=== PATIENT | male | born 1945 | race Caucasian/White ===

== ENCOUNTER 2020-04-04 13:35 | Emergency (ER) | payer MEDICARE, MEDICAID ==
[~2020-04-04] VITALS: Ht 177.8 cm; Wt 95.0 kg
[~2020-04-04 13:35] MED LIST: AMLO5TAB PO; ASPI-41 PO; CLOP75TA15 PO; GABA-532 PO; HYDR-4353 PO; LISI-600 PO; TRAM50TA2 PO
[2020-04-04] MEDS ORDERED: tranexamic acid 100mg/ml inj. TP ONE (15:35)
[2020-04-04] MEDS ORDERED: AMOX-419 PO (16:27)
[2020-04-04 16:51] VITALS: BP 154/73
== END 2020-04-04 16:52 | disposition home or self-care (01) ==
LOC: ER 13:35
DX: R04.0 Epistaxis (principal); H92.01 Otalgia, right ear; I25.10 Atherosclerotic heart disease of native coronary artery without angina pectoris; I10 Essential (primary) hypertension; I25.2 Old myocardial infarction; M19.90 Unspecified osteoarthritis, unspecified site; G89.29 Other chronic pain; Z87.01 Personal history of pneumonia (recurrent); Z98.890 Other specified postprocedural states; Z91.018 Allergy to other foods; Z91.010 Allergy to peanuts; Z91.09 Other allergy status, other than to drugs and biological substances; Z79.01 Long term (current) use of anticoagulants; Z79.82 Long term (current) use of aspirin; Z79.2 Long term (current) use of antibiotics; Z79.899 Other long term (current) drug therapy
CPT/HCPCS: 99284

== ENCOUNTER 2020-04-06 01:11 | Emergency (ER) | payer MEDICARE, MEDICAID ==
[~2020-04-06] VITALS: Ht 177.8 cm; Wt 95.5 kg
[~2020-04-06 01:11] MED LIST changes: +AMOX-419 PO
[2020-04-06 01:21] VITALS: BP 173/85
[2020-04-06] MEDS ORDERED: cocaine 4% topical solution 4ml bottle MM ONE ×2 (01:25→01:30)
[2020-04-06] MEDS ORDERED: amox tr/potassium clavulanate 875/125mg TAB PO ONE (03:05)
== END 2020-04-06 04:00 | disposition home or self-care (01) ==
LOC: ER 01:11
DX: S01.21XA Laceration without foreign body of nose, initial encounter (principal); I25.10 Atherosclerotic heart disease of native coronary artery without angina pectoris; I10 Essential (primary) hypertension; I25.2 Old myocardial infarction; M19.90 Unspecified osteoarthritis, unspecified site; G89.29 Other chronic pain; Z98.61 Coronary angioplasty status; Z98.890 Other specified postprocedural states; Z88.8 Allergy status to other drugs, medicaments and biological substances; Z91.018 Allergy to other foods; Z79.2 Long term (current) use of antibiotics; Z79.899 Other long term (current) drug therapy; X58.XXXA Exposure to other specified factors, initial encounter; Y93.89 Activity, other specified; Y92.89 Other specified places as the place of occurrence of the external cause; Y99.8 Other external cause status
CPT/HCPCS: 30901; 99284

== ENCOUNTER 2021-01-09 07:16 | Emergency (ER) | payer MEDICARE, MEDICAID ==
[~2021-01-09] VITALS: Ht 180.3 cm; Wt 100.0 kg
[~2021-01-09 07:16] MED LIST changes: -AMOX-419 PO; -LISI-600 PO; +LISI20TA28 PO
[2021-01-09 07:23] VITALS: BP 182/88
[2021-01-09 07:53] LABS: BASOPHILS % (AUTO) 0.4 % (0-1); EOSINOPHILS # (AUTO) 0.3 X10'3 (0-0.9); EOSINOPHILS % (AUTO) 3.3 % (0-6); HEMATOCRIT 36.3 % (42.0-52.0); HEMOGLOBIN 11.8 g/dl (14.0-17.9); LYMPHOCYTES # (AUTO) 2.5 X10'3 (1.1-4.8); LYMPHOCYTES % (AUTO) 31.8 % (21-51); MEAN CORPUSCULAR HGB CONC 32.4 g/dL (33.0-36.5); MEAN CORPUSCULAR VOLUME 83.4 FL (78-98); MEAN PLATELET VOLUME 9.6 FL (7.4-10.4); MONOCYTES # (AUTO) 1.1 X10'3 (0-0.9); MONOCYTES % (AUTO) 14.2 % (2-12); NEUTROPHILS % (AUTO) 50.3 % (42-75); PLATELET COUNT 177 X10'3 (140-440); RED BLOOD COUNT 4.36 X10'6 (4.70-6.10); RED CELL DISTRIBUTION WIDTH 15.3 % (11.5-14.5)
[2021-01-09 08:08] LABS: ALANINE AMINOTRANSFERASE 20 U/L (12-78); ALBUMIN 3.2 G/DL (3.4-5.0); ALBUMIN/GLOBULIN RATIO 0.8 (1.1-1.5); ALKALINE PHOSPHATASE 68 IU/L (46-116); ANION GAP 7 (8-16); ASPARTATE AMINO TRANSFERASE 12 U/L (10-37); BILIRUBIN,TOTAL 0.4 MG/DL (0.1-1.0); BLOOD UREA NITROGEN 32 MG/DL (7-18); BUN/CREATININE RATIO 27.6 (5.4-32.0); CALCIUM 9.1 MG/DL (8.5-10.1); CHLORIDE 102 MMOL/L (99-107); CREATININE 1.16 MG/DL (0.60-1.10); GLUCOSE 122 MG/DL (70-104); MAGNESIUM 1.9 MG/DL (1.5-2.4); POTASSIUM 4.1 MMOL/L (3.5-5.1); SODIUM 137 MMOL/L (135-145); TOTAL CARBON DIOXIDE 28.2 MMOL/L (24-32); eGFR 62 ML/MIN
== END 2021-01-09 09:15 | disposition home or self-care (01) ==
LOC: ER 07:16
DX: R00.2 Palpitations (principal); I25.10 Atherosclerotic heart disease of native coronary artery without angina pectoris; I10 Essential (primary) hypertension; I25.2 Old myocardial infarction; M19.90 Unspecified osteoarthritis, unspecified site; G89.29 Other chronic pain; Z87.01 Personal history of pneumonia (recurrent); Z98.890 Other specified postprocedural states; Z91.018 Allergy to other foods; Z91.010 Allergy to peanuts; Z79.82 Long term (current) use of aspirin; Z88.8 Allergy status to other drugs, medicaments and biological substances; Z79.899 Other long term (current) drug therapy
CPT/HCPCS: 36415; 71045; 80053; 83735; 84484; 85025; 93005; 99285

== ENCOUNTER 2021-02-06 03:52 | Emergency (ER) | payer MEDICARE, MEDICAID ==
[~2021-02-06] VITALS: Ht 177.8 cm; Wt 88.6 kg
[2021-02-06 03:54] VITALS: BP 203/99
[2021-02-06] MEDS ORDERED: HYDROcodone/acetaminophen 10/325mg tab PO ONE (04:10)
[2021-02-06] MEDS ORDERED: ondansetron/PF 4mg/2ml inj IV ONE ×2 (04:10→04:45)
[2021-02-06] MEDS ORDERED: gabapentin 300mg capsule PO SCH (04:10)
[2021-02-06] MEDS ORDERED: iohexol 300mg/ml 100ml inj. ONE (04:31)
[2021-02-06 04:34] LABS: BASOPHILS % (AUTO) 0.5 % (0-1); EOSINOPHILS % (AUTO) 0.2 % (0-6); HEMATOCRIT 42.7 % (42.0-52.0); LYMPHOCYTES # (AUTO) 1.8 X10'3 (1.1-4.8); LYMPHOCYTES % (AUTO) 18.9 % (21-51); MEAN CORPUSCULAR HEMOGLOBIN 26.9 PG (27.0-31.0); MEAN CORPUSCULAR HGB CONC 32.7 g/dL (33.0-36.5); MEAN CORPUSCULAR VOLUME 82.2 FL (78-98); MONOCYTES # (AUTO) 0.6 X10'3 (0-0.9); MONOCYTES % (AUTO) 6.9 % (2-12); NEUTROPHILS # (AUTO) 6.9 X10'3 (1.8-7.7); NEUTROPHILS % (AUTO) 73.5 % (42-75); PLATELET COUNT 172 X10'3 (140-440); RED BLOOD COUNT 5.19 X10'6 (4.70-6.10); RED CELL DISTRIBUTION WIDTH 15.8 % (11.5-14.5); WHITE BLOOD COUNT 9.3 X10'3 (4.5-11.0)
[2021-02-06 04:43] LABS: ALANINE AMINOTRANSFERASE 22 U/L (12-78); ALBUMIN 3.6 G/DL (3.4-5.0); ALBUMIN/GLOBULIN RATIO 0.9 (1.1-1.5); ALKALINE PHOSPHATASE 80 IU/L (46-116); ANION GAP 9 (8-16); ASPARTATE AMINO TRANSFERASE 14 U/L (10-37); BILIRUBIN,TOTAL 0.6 MG/DL (0.1-1.0); BLOOD UREA NITROGEN 21 MG/DL (7-18); BUN/CREATININE RATIO 18.4 (5.4-32.0); CALCIUM 9.5 MG/DL (8.5-10.1); CHLORIDE 103 MMOL/L (99-107); CREATININE 1.14 MG/DL (0.60-1.10); GLUCOSE 131 MG/DL (70-104); LIPASE 81 U/L (73-393); POTASSIUM 3.5 MMOL/L (3.5-5.1); SODIUM 141 MMOL/L (135-145); TOTAL CARBON DIOXIDE 29.5 MMOL/L (24-32); TOTAL PROTEIN 7.6 G/DL (6.4-8.2); eGFR 63 ML/MIN
[2021-02-06] MEDS ORDERED: fentaNYL/PF 50MCG/1 ML 2ML syringe IV ONE (04:45)
[2021-02-06] MEDS ORDERED: ONDA4TAB12 PO (06:11)
== END 2021-02-06 06:36 | disposition home or self-care (01) ==
LOC: ER 03:53
DX: R11.2 Nausea with vomiting, unspecified (principal); R10.84 Generalized abdominal pain; M79.669 Pain in unspecified lower leg; M19.90 Unspecified osteoarthritis, unspecified site; G89.29 Other chronic pain; I25.10 Atherosclerotic heart disease of native coronary artery without angina pectoris; I10 Essential (primary) hypertension; I25.2 Old myocardial infarction; Z87.01 Personal history of pneumonia (recurrent); Z98.61 Coronary angioplasty status
CPT/HCPCS: 36415; 74177; 80053; 83690; 85025; 93005; 96374; 96375; 99285; J2405; J3010; Q9967

== ENCOUNTER 2022-04-23 13:49 | Emergency (ER) | payer MEDICARE, MEDICAID ==
[~2022-04-23] VITALS: Ht 177.8 cm; Wt 87.4 kg
[~2022-04-23 13:49] MED LIST changes: +ONDA4TAB12 PO
[2022-04-23 14:13] VITALS: BP 158/71
[2022-04-23 16:38] LABS: D-DIMER 0.61 MG/L FEU (0-0.50)
[2022-04-23 17:00] LABS: EOSINOPHILS # (AUTO) 0.3 X10'3 (0-0.9); EOSINOPHILS % (AUTO) 4.9 % (0-6); LYMPHOCYTES % (AUTO) 29.9 % (21-51); MEAN CORPUSCULAR HEMOGLOBIN 28.1 PG (27.0-31.0); NEUTROPHILS # (AUTO) 3.8 X10'3 (1.8-7.7)
[2022-04-23 17:03] LABS: BASOPHILS % (AUTO) 0.3 % (0-1); HEMATOCRIT 42.8 % (42.0-52.0); MEAN CORPUSCULAR HGB CONC 32.7 g/dL (33.0-36.5); MEAN CORPUSCULAR VOLUME 85.9 FL (78-98); MEAN PLATELET VOLUME 9.3 FL (7.4-10.4); MONOCYTES # (AUTO) 0.6 X10'3 (0-0.9); MONOCYTES % (AUTO) 9.1 % (2-12); NEUTROPHILS % (AUTO) 55.8 % (42-75); PLATELET COUNT 176 X10'3 (140-440); RED BLOOD COUNT 4.99 X10'6 (4.70-6.10); RED CELL DISTRIBUTION WIDTH 14.6 % (11.5-14.5); WHITE BLOOD COUNT 6.8 X10'3 (4.5-11.0)
[2022-04-23 17:08] LABS: ALANINE AMINOTRANSFERASE 16 U/L (12-78); ALBUMIN 3.8 G/DL (3.4-5.0); ALKALINE PHOSPHATASE 92 IU/L (46-116); ANION GAP 5 (8-16); ASPARTATE AMINO TRANSFERASE 15 U/L (10-37); BILIRUBIN,TOTAL 0.6 MG/DL (0.1-1.0); BLOOD UREA NITROGEN 20 MG/DL (7-18); BUN/CREATININE RATIO 18.3 (5.4-32.0); CALCIUM 9.1 MG/DL (8.5-10.1); CHLORIDE 102 MMOL/L (99-107); CREATININE 1.09 MG/DL (0.60-1.10); GLUCOSE 89 MG/DL (70-104); POTASSIUM 4.6 MMOL/L (3.5-5.1); SODIUM 136 MMOL/L (135-145); TOTAL CARBON DIOXIDE 28.7 MMOL/L (24-32); TOTAL PROTEIN 7.5 G/DL (6.4-8.2); eGFR 66 ML/MIN
[2022-04-23] MEDS ORDERED: ALBU18HF2 INH (17:16)
[2022-04-23] MEDS ORDERED: DOXY-11 PO (17:16)
== END 2022-04-23 17:35 | disposition home or self-care (01) ==
LOC: ER 13:50
DX: U07.1 COVID-19 (principal); J40 Bronchitis, not specified as acute or chronic; I11.9 Hypertensive heart disease without heart failure; G89.29 Other chronic pain; Z91.018 Allergy to other foods; Z88.8 Allergy status to other drugs, medicaments and biological substances; Z91.010 Allergy to peanuts
CPT/HCPCS: 36415; 71045; 80053; 85025; 85379; 99284

== ENCOUNTER 2022-04-26 06:12 | Emergency (ER) | payer MEDICARE, MEDICAID ==
[~2022-04-26] VITALS: Ht 177.8 cm; Wt 87.4 kg
[~2022-04-26 06:12] MED LIST changes: +ALBU18HF2 INH; +DOXY-11 PO
[2022-04-26 06:22] VITALS: BP 162/75
[2022-04-26] MEDS ORDERED: ONDA8TAB13 PO (06:49)
== END 2022-04-26 07:22 | disposition home or self-care (01) ==
LOC: ER 06:13
DX: R11.2 Nausea with vomiting, unspecified (principal); R53.83 Other fatigue; R05.9 Cough, unspecified; Z86.16 Personal history of COVID-19; I25.10 Atherosclerotic heart disease of native coronary artery without angina pectoris; I10 Essential (primary) hypertension; I25.2 Old myocardial infarction; M19.90 Unspecified osteoarthritis, unspecified site; G89.29 Other chronic pain; Z95.5 Presence of coronary angioplasty implant and graft; Z87.01 Personal history of pneumonia (recurrent); Z88.8 Allergy status to other drugs, medicaments and biological substances; Z91.010 Allergy to peanuts; Z91.018 Allergy to other foods; Z79.2 Long term (current) use of antibiotics; Z79.899 Other long term (current) drug therapy
CPT/HCPCS: 99283

== ENCOUNTER 2022-07-10 09:17 | Emergency (ER) | payer MEDICARE, MEDICAID ==
[~2022-07-10] VITALS: Ht 172.7 cm; Wt 90.9 kg
[~2022-07-10 09:17] MED LIST changes: -DOXY-11 PO; +ONDA8TAB13 PO
--- NOTE | 2022-07-10 13:00 | NUR ---
Post void residual =15ml.
--- NOTE | 2022-07-10 13:28 | NUR ---
Difficult to placed condom cath on pt due to his smaller size. is aware.
--- NOTE | 2022-07-10 14:35 | NUR ---
Pt given and understands d/c instructions. Escorted to the lobby via wheelchair.
[2022-07-10 14:36] VITALS: BP 155/79
== END 2022-07-10 14:38 | disposition home or self-care (01) ==
LOC: ER 09:17
DX: T83.018A Breakdown (mechanical) of other urinary catheter, initial encounter (principal); R21 Rash and other nonspecific skin eruption; I11.9 Hypertensive heart disease without heart failure; G89.29 Other chronic pain; Z91.018 Allergy to other foods; Z91.010 Allergy to peanuts; Z79.899 Other long term (current) drug therapy; Z79.82 Long term (current) use of aspirin
CPT/HCPCS: 51702; 99284; C1758; A4349; A4358

== ENCOUNTER 2022-08-14 05:02 | Emergency (ER) | payer MEDICARE, MEDICAID ==
[~2022-08-14] VITALS: Ht 177.8 cm; Wt 86.4 kg
[2022-08-14] MEDS ORDERED: ondansetron/PF 4mg/2ml inj IV ONE (05:45)
[2022-08-14] MEDS ORDERED: normal saline 1000ml 1,000 ML IV ONE (05:45)
[2022-08-14] MEDS ORDERED: normal saline 1000ML IV soln IVB ONE (06:25)
[2022-08-14] MEDS ORDERED: morphine 4 MG/ML inj SYRINge IV PRN (06:25)
[2022-08-14] MEDS ORDERED: morphine 4 MG/ML inj SYRINge IV ONE (06:32)
[2022-08-14 06:44] LABS: BASOPHILS % (AUTO) 0.3 % (0-1); EOSINOPHILS % (AUTO) 0.4 % (0-6); HEMATOCRIT 41.2 % (42.0-52.0); HEMOGLOBIN 13.7 g/dl (14.0-17.9); LYMPHOCYTES # (AUTO) 1.8 X10'3 (1.1-4.8); LYMPHOCYTES % (AUTO) 20.7 % (21-51); MEAN CORPUSCULAR HEMOGLOBIN 28.8 PG (27.0-31.0); MEAN CORPUSCULAR HGB CONC 33.3 g/dL (33.0-36.5); MEAN CORPUSCULAR VOLUME 86.4 FL (78-98); MEAN PLATELET VOLUME 9.8 FL (7.4-10.4); MONOCYTES # (AUTO) 0.5 X10'3 (0-0.9); MONOCYTES % (AUTO) 6.1 % (2-12); NEUTROPHILS # (AUTO) 6.2 X10'3 (1.8-7.7); NEUTROPHILS % (AUTO) 72.5 % (42-75); PLATELET COUNT 152 X10'3 (140-440); RED BLOOD COUNT 4.77 X10'6 (4.70-6.10); RED CELL DISTRIBUTION WIDTH 14.9 % (11.5-14.5); WHITE BLOOD COUNT 8.5 X10'3 (4.5-11.0)
[2022-08-14 06:53] LABS: ALANINE AMINOTRANSFERASE 14 U/L (12-78); ALBUMIN 3.8 G/DL (3.4-5.0); ALKALINE PHOSPHATASE 78 IU/L (46-116); ANION GAP 9 (8-16); ASPARTATE AMINO TRANSFERASE 12 U/L (10-37); BILIRUBIN,TOTAL 0.7 MG/DL (0.1-1.0); BLOOD UREA NITROGEN 26 MG/DL (7-18); CALCIUM 9.8 MG/DL (8.5-10.1); CHLORIDE 104 MMOL/L (99-107); GLUCOSE 120 MG/DL (70-104); POTASSIUM 3.4 MMOL/L (3.5-5.1); SODIUM 143 MMOL/L (135-145); TOTAL CARBON DIOXIDE 30.2 MMOL/L (24-32); TOTAL PROTEIN 7.5 G/DL (6.4-8.2); eGFR 73 ML/MIN
[2022-08-14 07:00] LABS: MAGNESIUM 1.9 MG/DL (1.5-2.4)
[2022-08-14 07:44] LABS: LIPASE 89 U/L (73-393)
[2022-08-14 08:37] VITALS: BP 133/61
[2022-08-14] MEDS ORDERED: proCHLORperazine 10 MG/2 ml inj IV ONE (09:10)
[2022-08-14] MEDS ORDERED: ONDA8TAB13 PO (09:23)
== END 2022-08-14 09:45 | disposition home or self-care (01) ==
LOC: ER 05:03
DX: R11.2 Nausea with vomiting, unspecified (principal); G89.29 Other chronic pain; M54.89 Other dorsalgia; E86.0 Dehydration; I25.10 Atherosclerotic heart disease of native coronary artery without angina pectoris; I10 Essential (primary) hypertension; I25.2 Old myocardial infarction; M19.90 Unspecified osteoarthritis, unspecified site; Z87.01 Personal history of pneumonia (recurrent); Z98.890 Other specified postprocedural states; Z88.8 Allergy status to other drugs, medicaments and biological substances; Z91.030 Bee allergy status; Z91.010 Allergy to peanuts; Z79.82 Long term (current) use of aspirin; Z79.899 Other long term (current) drug therapy
CPT/HCPCS: 36415; 71045; 80053; 83690; 83735; 83880; 84484; 85025; 93005; 96361; 96374; 96375; 96376; 99285; C1758; J0780; J2270; J2405; J7030; A6258; A6449

== ENCOUNTER 2023-07-14 09:41 | Emergency (ER) | payer MEDICARE, MEDICAID ==
[~2023-07-14] VITALS: Ht 177.8 cm; Wt 83.6 kg
[2023-07-14 09:43] VITALS: BP 184/77; PULSE 70; RESP 16; TEMP 98; O2SAT 98
[2023-07-14] MEDS ORDERED: ACET-2 PO ×3 (11:53→12:42)
== END 2023-07-14 12:14 | disposition home or self-care (01) ==
LOC: ER 09:42
DX: G89.29 Other chronic pain (principal); M54.59 Other low back pain; I11.9 Hypertensive heart disease without heart failure; Z88.8 Allergy status to other drugs, medicaments and biological substances; Z79.899 Other long term (current) drug therapy
CPT/HCPCS: 99281; 99283

== ENCOUNTER 2024-02-09 12:41 | Emergency (ER) | payer MEDICARE, MEDICAID ==
[~2024-02-09] VITALS: Ht 195.6 cm; Wt 96.0 kg
[~2024-02-09 12:41] MED LIST changes: +ACET-2 PO
[2024-02-09 12:49] VITALS: TEMP 98.4
[2024-02-09 14:05] LABS: BASOPHILS % (AUTO) 0.3 % (0-1); EOSINOPHILS % (AUTO) 0.2 % (0-6); HEMATOCRIT 45.4 % (42.0-52.0); HEMOGLOBIN 15.2 g/dl (14.0-17.9); LYMPHOCYTES # (AUTO) 2.1 X10'3 (1.1-4.8); MEAN CORPUSCULAR HEMOGLOBIN 28.9 PG (27.0-31.0); MEAN CORPUSCULAR HGB CONC 33.5 g/dL (33.0-36.5); MEAN CORPUSCULAR VOLUME 86.3 FL (78-98); MEAN PLATELET VOLUME 9.8 FL (7.4-10.4); MONOCYTES # (AUTO) 0.6 X10'3 (0-0.9); MONOCYTES % (AUTO) 6.6 % (2-12); NEUTROPHILS # (AUTO) 6.3 X10'3 (1.8-7.7); NEUTROPHILS % (AUTO) 69.9 % (42-75); PLATELET COUNT 194 X10'3 (140-440); RED BLOOD COUNT 5.26 X10'6 (4.70-6.10); RED CELL DISTRIBUTION WIDTH 14.2 % (11.5-14.5); WHITE BLOOD COUNT 9.1 X10'3 (4.5-11.0)
[2024-02-09] MEDS: ondansetron/PF 4mg/2ml inj IV ONE (14:17)
[2024-02-09] MEDS: morphine 4 MG/ML inj SYRINge IV ONE (14:17)
[2024-02-09 14:21] LABS: ALANINE AMINOTRANSFERASE 13 U/L (12-78); ALBUMIN 3.7 G/DL (3.4-5.0); ALBUMIN/GLOBULIN RATIO 0.8 (1.1-1.5); ALKALINE PHOSPHATASE 81 IU/L (46-116); ANION GAP 13 (8-16); ASPARTATE AMINO TRANSFERASE 15 U/L (10-37); BILIRUBIN,TOTAL 0.9 MG/DL (0.1-1.0); BLOOD UREA NITROGEN 27 MG/DL (7-18); BUN/CREATININE RATIO 22.5 (10.0-20.0); CALCIUM 9.4 MG/DL (8.5-10.1); CHLORIDE 103 MMOL/L (99-107); GLUCOSE 112 MG/DL (70-104); LIPASE 24 U/L (16-77); POTASSIUM 3.9 MMOL/L (3.5-5.1); SODIUM 143 MMOL/L (135-145); TOTAL CARBON DIOXIDE 27.5 MMOL/L (24-32); TOTAL PROTEIN 8.1 G/DL (6.4-8.2); eCRCL 65 ML/MIN; eGFR 59 ML/MIN
[2024-02-09] MEDS: HYDROcodone/acetaminophen 10/325mg tab PO ONE (17:16)
[2024-02-09 17:26] VITALS: BP 174/78; PULSE 63; RESP 16; O2SAT 96
== END 2024-02-09 17:30 | disposition home or self-care (01) ==
LOC: ER 12:42
DX: R11.10 Vomiting, unspecified (principal); G89.29 Other chronic pain; M54.9 Dorsalgia, unspecified; F11.93 Opioid use, unspecified with withdrawal; I10 Essential (primary) hypertension; M19.90 Unspecified osteoarthritis, unspecified site; Z88.8 Allergy status to other drugs, medicaments and biological substances; Z88.2 Allergy status to sulfonamides; Z79.899 Other long term (current) drug therapy; Z79.82 Long term (current) use of aspirin
CPT/HCPCS: 36415; 80053; 83690; 84484; 85025; 93005; 96374; 96375; 99285; J2270; J2405

== ENCOUNTER 2024-06-12 09:16 | Emergency (ER) | payer MEDICARE, MEDICAID ==
[~2024-06-12] VITALS: Ht 175.3 cm; Wt 71.5 kg
[~2024-06-12 09:16] MED LIST changes: +ONDA-243 PO; +ONDA-245 PO; -ONDA4TAB12 PO; -ONDA8TAB13 PO
[2024-06-12 09:18] VITALS: BP 168/65; PULSE 70; TEMP 97.6; O2SAT 95
[2024-06-12 09:27] VITALS: RESP 16
[2024-06-12] MEDS: azithromycin 250mg tablet PO ONE (10:10)
[2024-06-12] MEDS ORDERED: AZIT-164 PO (10:20)
== END 2024-06-12 10:37 | disposition home or self-care (01) ==
LOC: ER 09:16
DX: J32.8 Other chronic sinusitis (principal); I10 Essential (primary) hypertension; I25.10 Atherosclerotic heart disease of native coronary artery without angina pectoris; I25.2 Old myocardial infarction; M19.90 Unspecified osteoarthritis, unspecified site; G89.29 Other chronic pain; Z98.890 Other specified postprocedural states; Z98.61 Coronary angioplasty status; Z88.2 Allergy status to sulfonamides; Z91.018 Allergy to other foods; Z79.899 Other long term (current) drug therapy; Z79.82 Long term (current) use of aspirin
CPT/HCPCS: 87070; 99284

== ENCOUNTER 2024-12-17 06:58 | Emergency (ER) | payer MEDICARE, MEDICAID ==
[~2024-12-17] VITALS: Ht 177.8 cm; Wt 98.3 kg
[~2024-12-17 06:58] MED LIST changes: -ACET-2 PO; -ALBU18HF2 INH; +AMLO10TA5 PO; -AMLO5TAB PO; +APIX5TAB3 PO; -ASPI-41 PO; -CLOP75TA15 PO; +EMPA10TA PO; +FURO-150 PO; +GABA-530 PO; -GABA-532 PO; +GABA100C PO; +LACT1CAP26 PO; +OMEP20CA16 PO; -ONDA-243 PO; -ONDA-245 PO; +SPIR25TA5 PO
[2024-12-17 07:02] VITALS: BP 180/75; PULSE 70; RESP 18; TEMP 98.3; O2SAT 96
[2024-12-17 08:44] LABS: ALBUMIN 3.2 G/DL (3.4-5.0); ANION GAP 11 (8-16); BLOOD UREA NITROGEN 23 MG/DL (7-18); BUN/CREATININE RATIO 13.8 (10.0-20.0); CALCIUM 9.3 MG/DL (8.5-10.1); CHLORIDE 102 MMOL/L (99-107); CREATININE 1.67 MG/DL (0.60-1.10); GLUCOSE 117 MG/DL (70-104); POTASSIUM 4.7 MMOL/L (3.5-5.1); SODIUM 135 MMOL/L (135-145); eCRCL 38 ML/MIN; eGFR 40 ML/MIN
[2024-12-17 08:53] LABS: BASOPHILS % (AUTO) 0.3 % (0-1); EOSINOPHILS % (AUTO) 0.1 % (0-6); HEMATOCRIT 37.6 % (42.0-52.0); HEMOGLOBIN 12.6 g/dl (14.0-17.9); LYMPHOCYTES # (AUTO) 1.6 X10'3 (1.1-4.8); LYMPHOCYTES % (AUTO) 15.4 % (21-51); MEAN CORPUSCULAR HEMOGLOBIN 29.3 PG (27.0-31.0); MEAN CORPUSCULAR HGB CONC 33.5 g/dL (33.0-36.5); MEAN CORPUSCULAR VOLUME 87.5 FL (78-98); MEAN PLATELET VOLUME 9.6 FL (7.4-10.4); MONOCYTES # (AUTO) 1.1 X10'3 (0-0.9); MONOCYTES % (AUTO) 10.5 % (2-12); NEUTROPHILS # (AUTO) 7.6 X10'3 (1.8-7.7); NEUTROPHILS % (AUTO) 73.7 % (42-75); PLATELET COUNT 161 X10'3 (140-440); RED CELL DISTRIBUTION WIDTH 15.1 % (11.5-14.5); WHITE BLOOD COUNT 10.4 X10'3 (4.5-11.0)
[2024-12-17] MEDS ORDERED: ACET15SO14 RIGHT EAR (09:59)
== END 2024-12-17 10:03 | disposition home or self-care (01) ==
LOC: ER 06:59
DX: H92.01 Otalgia, right ear (principal); R50.9 Fever, unspecified; I21.9 Acute myocardial infarction, unspecified; I10 Essential (primary) hypertension; I25.10 Atherosclerotic heart disease of native coronary artery without angina pectoris; I25.2 Old myocardial infarction; G89.29 Other chronic pain; M19.90 Unspecified osteoarthritis, unspecified site; Z88.2 Allergy status to sulfonamides; Z91.010 Allergy to peanuts; Z88.8 Allergy status to other drugs, medicaments and biological substances; Z91.018 Allergy to other foods; Z79.899 Other long term (current) drug therapy; Z98.890 Other specified postprocedural states; Z20.822 Contact with and (suspected) exposure to COVID-19
CPT/HCPCS: 36415; 71046; 80048; 83605; 84145; 85025; 87040; 87811; 99284

== ENCOUNTER 2024-12-22 14:12 | Inpatient (IN) | payer MEDICARE, MEDICAID ==
[~2024-12-22] VITALS: Ht 177.8 cm; Wt 84.0 kg
[~2024-12-22 14:12] MED LIST changes: +ACET15SO14 RIGHT EAR
[2024-12-22 16:56] LABS: ABG BASE EXCESS -5.6 mmol/L (-2.0-3.0); ABG HCO3 20.2 mmol/L (21.0-28.0); ABG OXYGEN SATURATION 90.4 % (94.0-98.0); ABG PCO2 (T) 40.2 mmHg (35.0-48.0); ABG PH (T) 7.318 (7.350-7.450); ABG PO2 (T) 62.8 mmHg (83.0-108.0); ALLEN'S TEST POSITIVE; FCOHb 0.4 % (0.5-1.5); FHHb 9.5 % (0.0-5.0); FLOW 0 L/min; FMetHb 0.3 % (0.0-1.5); FO2Hb 89.8 % (94.0-98.0); MODE ROOM AIR; TOTAL HEMOGLOBIN 12.1 G/dl (13.5-17.5)
[2024-12-22 17:24] LABS: BASOPHILS % (AUTO) 0.2 % (0-1); EOSINOPHILS % (AUTO) 0.2 % (0-6); HEMATOCRIT 35.2 % (42.0-52.0); HEMOGLOBIN 11.5 g/dl (14.0-17.9); LYMPHOCYTES # (AUTO) 1.2 X10'3 (1.1-4.8); LYMPHOCYTES % (AUTO) 6.9 % (21-51); MEAN CORPUSCULAR HEMOGLOBIN 28.9 PG (27.0-31.0); MEAN CORPUSCULAR HGB CONC 32.6 g/dL (33.0-36.5); MEAN CORPUSCULAR VOLUME 88.7 FL (78-98); MONOCYTES # (AUTO) 2.3 X10'3 (0-0.9); MONOCYTES % (AUTO) 13.3 % (2-12); NEUTROPHILS # (AUTO) 13.6 X10'3 (1.8-7.7); NEUTROPHILS % (AUTO) 79.4 % (42-75); PLATELET COUNT 250 X10'3 (140-440); RED BLOOD COUNT 3.97 X10'6 (4.70-6.10); RED CELL DISTRIBUTION WIDTH 15.2 % (11.5-14.5); WHITE BLOOD COUNT 17.2 X10'3 (4.5-11.0)
[2024-12-22 17:50] LABS: ALANINE AMINOTRANSFERASE 14 U/L (12-78); ALBUMIN 2.3 G/DL (3.4-5.0); ALBUMIN/GLOBULIN RATIO 0.5 (1.1-1.5); ALKALINE PHOSPHATASE 82 IU/L (46-116); ANION GAP 9 (8-16); ASPARTATE AMINO TRANSFERASE 10 U/L (10-37); BILIRUBIN,TOTAL 0.6 MG/DL (0.1-1.0); BLOOD UREA NITROGEN 54 MG/DL (7-18); BUN/CREATININE RATIO 17.6 (10.0-20.0); CALCIUM 9.2 MG/DL (8.5-10.1); CHLORIDE 104 MMOL/L (99-107); CREATININE 3.06 MG/DL (0.60-1.10); GLUCOSE 88 MG/DL (70-104); POTASSIUM 5.4 MMOL/L (3.5-5.1); SODIUM 139 MMOL/L (135-145); TOTAL CARBON DIOXIDE 26.2 MMOL/L (24-32); TOTAL PROTEIN 7.2 G/DL (6.4-8.2); eCRCL 21 ML/MIN; eGFR 20 ML/MIN
[2024-12-22 17:55] LABS: BILIRUBIN,URINE NEGATIVE (Neg); CLARITY,URINE CLEAR (Clear); COLOR,URINE YELLOW (Yellow); GLUCOSE, URINE NEGATIVE (Neg); KETONES,URINE NEGATIVE (Neg); LEUKOCYTE ESTERASE ,URINE MODERATE (Neg); NITRITES, URINE POSITIVE (Neg); OCCULT BLOOD,URINE MODERATE (Neg); PROTEIN,URINE 30 mg/dl (Neg); UROBILINOGEN,URINE 0.2 E.U/dL (0.2-1.0)
[2024-12-22 17:59] LABS: PRO BRAIN NATRIURETIC PEPTIDE 22869 PG/ML (0-450)
[2024-12-22 18:02] LABS: UA COLLECTION TYPE NON-SPECIFIED
[2024-12-22 18:04] LABS: BACTERIA,URINE 4+ /HPF (Neg); SQUAMOUS EPITHELIAL CELL,UR FEW /LPF (FEW); WBC,URINE TNTC /HPF (0-4)
[2024-12-22] MEDS: CefTRIAXone 2gm/D5W 50ml BAG 50 ML IV ONE (18:40)
[2024-12-22] MEDS: ringers solution, lacted 1,000 ML IV ONE ×2 (18:45→20:58)
[2024-12-22] MEDS: acetaminophen 1,000mg/100ml IV 100 ML IV ONE (19:39)
[2024-12-22] MEDS: normal saline 500ml IV soln 500 ML IV ONE (19:40)
[2024-12-22] MEDS ORDERED: mag hydrox/Alum hydrox/simeth 30ml oral suspension PO PRN (21:10)
[2024-12-22] MEDS ORDERED: acetaminophen 325mg tablet PO PRN (21:10)
[2024-12-22] MEDS ORDERED: potassium Cl 40MEQ/1/2NS 520ml 520 ML IV PRN (21:10)
[2024-12-22] MEDS ORDERED: potassium Cl 20 mEq SR tablet PO PRN ×2 (21:10)
[2024-12-22] MEDS ORDERED: magnesium hydroxide 30ml (MOM) UD suspension PO PRN (21:10)
[2024-12-22] MEDS ORDERED: magnesium sulf-water 4G/100mL 100 ML IV PRN (21:10)
[2024-12-22] MEDS ORDERED: ondansetron/PF 4mg/2ml inj IV PRN (21:10)
[2024-12-22] MEDS ORDERED: magnesium sulf-water 2g/50mL 50 ML IV PRN (21:10)
[2024-12-22] MEDS ORDERED: magnesium Cl slow-release 64mg tablet PO PRN (21:10)
[2024-12-22 21:37] LABS: ALANINE AMINOTRANSFERASE 9 U/L (12-78); ALBUMIN 1.9 G/DL (3.4-5.0); ALBUMIN/GLOBULIN RATIO 0.4 (1.1-1.5); ALKALINE PHOSPHATASE 73 IU/L (46-116); ANION GAP 12 (8-16); ASPARTATE AMINO TRANSFERASE 13 U/L (10-37); BILIRUBIN,TOTAL 0.4 MG/DL (0.1-1.0); BLOOD UREA NITROGEN 50 MG/DL (7-18); BUN/CREATININE RATIO 17.6 (10.0-20.0); CALCIUM 8.7 MG/DL (8.5-10.1); CHLORIDE 103 MMOL/L (99-107); CREATININE 2.84 MG/DL (0.60-1.10); GLUCOSE 92 MG/DL (70-104); POTASSIUM 4.5 MMOL/L (3.5-5.1); SODIUM 136 MMOL/L (135-145); TOTAL CARBON DIOXIDE 20.9 MMOL/L (24-32); TOTAL PROTEIN 6.4 G/DL (6.4-8.2); eCRCL 22 ML/MIN; eGFR 22 ML/MIN
[2024-12-22] MEDS: furosemide 10 MG/1 ML 10ml inj IV ONE (22:02)
[2024-12-22] MEDS: apixaban 5mg tablet PO SCH (22:03)
[2024-12-23] VITALS (7 sets, daily range): BP systolic 100–169; BP diastolic 53–67; PULSE 69–89; RESP 15–18; TEMP 97.7–98; O2SAT 93–98
[2024-12-23] MEDS: HYDROcodone/acetaminophen 10/325mg tab PO ONE (00:47)
[2024-12-23] MEDS ORDERED: THYR90TA PO (01:06)
[2024-12-23 02:17] LABS: ALBUMIN 2.2 G/DL (3.4-5.0); ANION GAP 12 (8-16); BLOOD UREA NITROGEN 50 MG/DL (7-18); BUN/CREATININE RATIO 17.1 (10.0-20.0); CHLORIDE 102 MMOL/L (99-107); CREATININE 2.92 MG/DL (0.60-1.10); GLUCOSE 98 MG/DL (70-104); POTASSIUM 4.5 MMOL/L (3.5-5.1); SODIUM 136 MMOL/L (135-145); TOTAL CARBON DIOXIDE 22.2 MMOL/L (24-32); eCRCL 22 ML/MIN; eGFR 21 ML/MIN
[2024-12-23 06:33] LABS: BASOPHILS % (AUTO) 0.2 % (0-1); EOSINOPHILS % (AUTO) 0.1 % (0-6); HEMATOCRIT 36.8 % (42.0-52.0); HEMOGLOBIN 12.2 g/dl (14.0-17.9); LYMPHOCYTES # (AUTO) 1.5 X10'3 (1.1-4.8); LYMPHOCYTES % (AUTO) 8.2 % (21-51); MEAN CORPUSCULAR HEMOGLOBIN 29.2 PG (27.0-31.0); MEAN CORPUSCULAR VOLUME 88.3 FL (78-98); MEAN PLATELET VOLUME 9.8 FL (7.4-10.4); MONOCYTES % (AUTO) 11.2 % (2-12); NEUTROPHILS # (AUTO) 14.3 X10'3 (1.8-7.7); NEUTROPHILS % (AUTO) 80.3 % (42-75); PLATELET COUNT 292 X10'3 (140-440); RED BLOOD COUNT 4.17 X10'6 (4.70-6.10); WHITE BLOOD COUNT 17.8 X10'3 (4.5-11.0)
[2024-12-23 06:45] LABS: APTT 33 SECONDS (22-32); INR 1.2 INR; PROTHROMBIN TIME 12.4 SECONDS (9.0-12.0)
[2024-12-23 07:08] LABS: ALANINE AMINOTRANSFERASE 13 U/L (12-78); ALBUMIN 2.3 G/DL (3.4-5.0); ALBUMIN/GLOBULIN RATIO 0.5 (1.1-1.5); ALKALINE PHOSPHATASE 86 IU/L (46-116); ANION GAP 10 (8-16); ASPARTATE AMINO TRANSFERASE 8 U/L (10-37); BILIRUBIN,TOTAL 0.4 MG/DL (0.1-1.0); BLOOD UREA NITROGEN 56 MG/DL (7-18); BUN/CREATININE RATIO 19.2 (10.0-20.0); CALCIUM 9.4 MG/DL (8.5-10.1); CHLORIDE 103 MMOL/L (99-107); CHOL/HDL RATIO 7.8 (0.00-4.99); CHOLESTEROL 149 MG/DL (0-200); CREATININE 2.91 MG/DL (0.60-1.10); FREE T4 (FREE THYROXINE) 0.96 NG/DL (0.73-1.40); GLUCOSE 104 MG/DL (70-104); HDL CHOLESTEROL 19 MG/DL (35-60); LDL CHOLESTEROL 75 MG/DL (50-100); MAGNESIUM 1.8 MG/DL (1.5-2.4); PHOSPHORUS 4.1 MG/DL (2.3-4.5); POTASSIUM 4.8 MMOL/L (3.5-5.1); SODIUM 139 MMOL/L (135-145); THYROID STIMULATING HORMONE 2.18 ulU/ml (0.34-4.50); TOTAL CARBON DIOXIDE 25.9 MMOL/L (24-32); TOTAL PROTEIN 7.4 G/DL (6.4-8.2); TRIGLYCERIDES 155 MG/DL (20-135); eCRCL 22 ML/MIN; eGFR 21 ML/MIN
[2024-12-23 07:44] LABS: HEMOGLOBIN A1C 5.2 % (4.5-6.2)
[2024-12-23] MEDS ORDERED: heparin, porcine 5000 units/ml vial SQ SCH (08:00)
[2024-12-23] MEDS: K and/or MAG REPLACEMENT MC SCH (08:00)
[2024-12-23] MEDS ORDERED: traMADol 50MG tablet PO SCH (08:00)
[2024-12-23] MEDS: HYDROcodone/acetaminophen 10/325mg tab PO PRN (08:50)
[2024-12-23] MEDS: docusate sod 100mg capsule PO SCH (08:52)
[2024-12-23] MEDS: aspirin 81mg, enteric-coated 1 TAB TABLET.DR PO SCH (08:52)
[2024-12-23] MEDS: gabapentin 100mg capsule PO SCH (08:52)
[2024-12-23] MEDS: furosemide 40mg/4ml inj IV SCH (08:52)
[2024-12-23] MEDS: thyroid, pork 30mg tablet PO SCH (08:52)
[2024-12-23] MEDS: CefTRIAXone 2gm/D5W 50ml BAG 50 ML IV SCH (08:52)
[2024-12-23] MEDS: pantoprazole 40mg Tablet.DR PO SCH (12:15)
[2024-12-23] MEDS: normal saline 1000ml 1,000 ML IV SCH (13:38)
[2024-12-23] MEDS ORDERED: traMADol 50MG tablet PO PRN (16:50)
[2024-12-23 19:25] LABS: URINE AMPHETAMINE SCREEN NEGATIVE (Neg); URINE BARBITUATE SCREEN NEGATIVE (Neg); URINE BENZODIAZEPINES SCREEN NEGATIVE (Neg); URINE CANNABINOID SCREEN NEGATIVE (Neg); URINE COCAINE SCREEN NEGATIVE (Neg); URINE METHADONE SCREEN NEGATIVE (Neg); URINE OPIATE SCREEN POSITIVE (Neg); URINE PHENCYCLIDINE SCREEN NEGATIVE (Neg)
[2024-12-23] MEDS: amLODIPine 5mg tablet PO SCH (20:09)
[2024-12-24] MEDS: traMADol 50MG tablet PO PRN (00:12)
[2024-12-24] MEDS: baclofen 10mg tablet PO ONE (01:56)
[2024-12-24 06:00] VITALS: BP 135/69; PULSE 81; RESP 18; TEMP 98.1; O2SAT 96
[2024-12-24 06:07] LABS: BASOPHILS # (AUTO) 0.2 X10'3 (0-0.2); BASOPHILS % (AUTO) 1.4 % (0-1); EOSINOPHILS # (AUTO) 0.1 X10'3 (0-0.9); EOSINOPHILS % (AUTO) 0.4 % (0-6); HEMATOCRIT 31.5 % (42.0-52.0); HEMOGLOBIN 10.5 g/dl (14.0-17.9); LYMPHOCYTES # (AUTO) 1.4 X10'3 (1.1-4.8); LYMPHOCYTES % (AUTO) 10.3 % (21-51); MEAN CORPUSCULAR HGB CONC 33.4 g/dL (33.0-36.5); MEAN CORPUSCULAR VOLUME 86.8 FL (78-98); MEAN PLATELET VOLUME 9.3 FL (7.4-10.4); MONOCYTES # (AUTO) 1.3 X10'3 (0-0.9); MONOCYTES % (AUTO) 10.1 % (2-12); NEUTROPHILS # (AUTO) 10.4 X10'3 (1.8-7.7); NEUTROPHILS % (AUTO) 77.8 % (42-75); PLATELET COUNT 297 X10'3 (140-440); RED BLOOD COUNT 3.63 X10'6 (4.70-6.10); WHITE BLOOD COUNT 13.4 X10'3 (4.5-11.0)
[2024-12-24 06:24] LABS: APTT 39 SECONDS (22-32); INR 1.3 INR; PROTHROMBIN TIME 13.4 SECONDS (9.0-12.0)
[2024-12-24 07:00] LABS: ALANINE AMINOTRANSFERASE 11 U/L (12-78); ALBUMIN 1.7 G/DL (3.4-5.0); ALBUMIN/GLOBULIN RATIO 0.4 (1.1-1.5); ALKALINE PHOSPHATASE 76 IU/L (46-116); ANION GAP 10 (8-16); ASPARTATE AMINO TRANSFERASE 16 U/L (10-37); BILIRUBIN,TOTAL 0.3 MG/DL (0.1-1.0); BLOOD UREA NITROGEN 57 MG/DL (7-18); BUN/CREATININE RATIO 20.7 (10.0-20.0); CALCIUM 8.6 MG/DL (8.5-10.1); CHLORIDE 103 MMOL/L (99-107); CREATININE 2.76 MG/DL (0.60-1.10); GLUCOSE 118 MG/DL (70-104); MAGNESIUM 1.5 MG/DL (1.5-2.4); PHOSPHORUS 3.8 MG/DL (2.3-4.5); POTASSIUM 3.9 MMOL/L (3.5-5.1); SODIUM 135 MMOL/L (135-145); TOTAL CARBON DIOXIDE 21.6 MMOL/L (24-32); TOTAL PROTEIN 6.4 G/DL (6.4-8.2); eCRCL 23 ML/MIN; eGFR 22 ML/MIN
[2024-12-24] MEDS: atorvastatin 20mg tablet PO SCH (09:01)
[2024-12-24 11:00] VITALS: BP 135/57; PULSE 68; RESP 19; TEMP 98.4; O2SAT 94
[2024-12-24 18:00] VITALS: BP 144/64; PULSE 73; RESP 16; TEMP 98.4; O2SAT 96
[2024-12-24 20:00] VITALS: RESP 16; O2SAT 92
[2024-12-24 22:00] VITALS: BP 141/64; PULSE 69; RESP 16; TEMP 99; O2SAT 92
[2024-12-24] MEDS: acetaminophen 325mg tablet PO PRN (22:01)
[2024-12-25] MEDS: baclofen 10mg tablet PO PRN (05:23)
[2024-12-25 06:00] VITALS: BP 156/70; PULSE 86; RESP 18; TEMP 98.2; O2SAT 94
[2024-12-25 06:28] LABS: BASOPHILS % (AUTO) 0.3 % (0-1); EOSINOPHILS # (AUTO) 0.1 X10'3 (0-0.9); EOSINOPHILS % (AUTO) 0.8 % (0-6); HEMATOCRIT 34.5 % (42.0-52.0); HEMOGLOBIN 11.3 g/dl (14.0-17.9); LYMPHOCYTES # (AUTO) 1.2 X10'3 (1.1-4.8); LYMPHOCYTES % (AUTO) 10.6 % (21-51); MEAN CORPUSCULAR HEMOGLOBIN 28.8 PG (27.0-31.0); MEAN CORPUSCULAR HGB CONC 32.8 g/dL (33.0-36.5); MEAN CORPUSCULAR VOLUME 87.9 FL (78-98); MEAN PLATELET VOLUME 8.6 FL (7.4-10.4); MONOCYTES # (AUTO) 1.2 X10'3 (0-0.9); MONOCYTES % (AUTO) 10.6 % (2-12); NEUTROPHILS % (AUTO) 77.7 % (42-75); PLATELET COUNT 353 X10'3 (140-440); RED BLOOD COUNT 3.92 X10'6 (4.70-6.10); WHITE BLOOD COUNT 11.6 X10'3 (4.5-11.0)
[2024-12-25 06:43] LABS: APTT 37 SECONDS (22-32); INR 1.2 INR; PROTHROMBIN TIME 12.7 SECONDS (9.0-12.0)
[2024-12-25 06:48] LABS: ALANINE AMINOTRANSFERASE 12 U/L (12-78); ALBUMIN 1.8 G/DL (3.4-5.0); ALBUMIN/GLOBULIN RATIO 0.4 (1.1-1.5); ALKALINE PHOSPHATASE 76 IU/L (46-116); ANION GAP 10 (8-16); ASPARTATE AMINO TRANSFERASE 17 U/L (10-37); BILIRUBIN,TOTAL 0.3 MG/DL (0.1-1.0); BLOOD UREA NITROGEN 51 MG/DL (7-18); BUN/CREATININE RATIO 21.1 (10.0-20.0); CALCIUM 8.9 MG/DL (8.5-10.1); CHLORIDE 106 MMOL/L (99-107); CREATININE 2.42 MG/DL (0.60-1.10); GLUCOSE 105 MG/DL (70-104); MAGNESIUM 1.5 MG/DL (1.5-2.4); PHOSPHORUS 3.7 MG/DL (2.3-4.5); POTASSIUM 3.6 MMOL/L (3.5-5.1); SODIUM 140 MMOL/L (135-145); TOTAL CARBON DIOXIDE 24.1 MMOL/L (24-32); TOTAL PROTEIN 6.7 G/DL (6.4-8.2); eCRCL 26 ML/MIN; eGFR 26 ML/MIN
[2024-12-25] MEDS: CefTRIAXone/D5W-Rocephin 1gm 50 ML IV SCH (09:21)
[2024-12-25 10:00] VITALS: BP 154/70; PULSE 55; RESP 17; TEMP 97.4; O2SAT 95
[2024-12-25] MEDS: lisinopril 20mg tablet PO SCH (17:48)
[2024-12-25 18:00] VITALS: BP 175/83; PULSE 67; RESP 14; TEMP 97.2; O2SAT 95
[2024-12-25 22:00] VITALS: BP 127/66; PULSE 68; RESP 18; TEMP 98.4; O2SAT 96
[2024-12-26 06:00] VITALS: BP 134/59; PULSE 70; RESP 18; TEMP 97.9; O2SAT 93
[2024-12-26 06:59] LABS: INR 1.2 INR; PROTHROMBIN TIME 12.5 SECONDS (9.0-12.0)
[2024-12-26 07:22] LABS: ALANINE AMINOTRANSFERASE 11 U/L (12-78); ALBUMIN 1.7 G/DL (3.4-5.0); ALBUMIN/GLOBULIN RATIO 0.4 (1.1-1.5); ALKALINE PHOSPHATASE 68 IU/L (46-116); ANION GAP 11 (8-16); ASPARTATE AMINO TRANSFERASE 25 U/L (10-37); BILIRUBIN,TOTAL 0.3 MG/DL (0.1-1.0); BLOOD UREA NITROGEN 45 MG/DL (7-18); BUN/CREATININE RATIO 23.6 (10.0-20.0); CALCIUM 8.7 MG/DL (8.5-10.1); CHLORIDE 107 MMOL/L (99-107); CREATININE 1.91 MG/DL (0.60-1.10); GLUCOSE 102 MG/DL (70-104); MAGNESIUM 1.6 MG/DL (1.5-2.4); PHOSPHORUS 3.4 MG/DL (2.3-4.5); POTASSIUM 4.3 MMOL/L (3.5-5.1); SODIUM 139 MMOL/L (135-145); TOTAL PROTEIN 6.2 G/DL (6.4-8.2); eCRCL 33 ML/MIN; eGFR 34 ML/MIN
[2024-12-26 08:00] VITALS: RESP 18; O2SAT 93
[2024-12-26 08:28] LABS: BASOPHILS % (AUTO) 0.3 % (0-1); EOSINOPHILS # (AUTO) 0.1 X10'3 (0-0.9); HEMATOCRIT 33.1 % (42.0-52.0); HEMOGLOBIN 10.7 g/dl (14.0-17.9); LYMPHOCYTES # (AUTO) 1.7 X10'3 (1.1-4.8); LYMPHOCYTES % (AUTO) 15.3 % (21-51); MEAN CORPUSCULAR HEMOGLOBIN 28.4 PG (27.0-31.0); MEAN CORPUSCULAR HGB CONC 32.3 g/dL (33.0-36.5); MEAN CORPUSCULAR VOLUME 87.9 FL (78-98); MEAN PLATELET VOLUME 8.7 FL (7.4-10.4); MONOCYTES # (AUTO) 1.3 X10'3 (0-0.9); MONOCYTES % (AUTO) 11.4 % (2-12); PLATELET COUNT 393 X10'3 (140-440); RED BLOOD COUNT 3.76 X10'6 (4.70-6.10); RED CELL DISTRIBUTION WIDTH 15.2 % (11.5-14.5); WHITE BLOOD COUNT 11.1 X10'3 (4.5-11.0)
[2024-12-26 09:04] VITALS: BP_SYST 134; PULSE 70
[2024-12-26 09:11] LABS: ALBUMIN 1.8 G/DL (3.4-5.0); ANION GAP 10 (8-16); BLOOD UREA NITROGEN 45 MG/DL (7-18); BUN/CREATININE RATIO 22.7 (10.0-20.0); CALCIUM 8.7 MG/DL (8.5-10.1); CHLORIDE 106 MMOL/L (99-107); CREATININE 1.98 MG/DL (0.60-1.10); GLUCOSE 101 MG/DL (70-104); POTASSIUM 4.1 MMOL/L (3.5-5.1); SODIUM 140 MMOL/L (135-145); TOTAL CARBON DIOXIDE 23.8 MMOL/L (24-32); eCRCL 32 ML/MIN; eGFR 33 ML/MIN
[2024-12-26 12:44] VITALS: RESP 18
[2024-12-26] MEDS: lactose-reduced food (Ensure Enlive) - 237ml bottle PO SCH (13:27)
== END 2024-12-26 13:40 | DRG 871 ==
LOC: ER 14:13 → ED HOLD 21:12 → EDBEDREQ 22:50 → ORTHO 4S 12-23 00:25
PROVIDERS: ADMIT Surgery Surgical Critical Care; ATTEND Internal Medicine
DX: A41.9 Sepsis, unspecified organism (principal); G93.41 Metabolic encephalopathy; N17.0 Acute kidney failure with tubular necrosis; I50.33 Acute on chronic diastolic (congestive) heart failure; N30.01 Acute cystitis with hematuria; I11.0 Hypertensive heart disease with heart failure; I25.10 Atherosclerotic heart disease of native coronary artery without angina pectoris; E87.5 Hyperkalemia; Q98.4 Klinefelter syndrome, unspecified; Z88.2 Allergy status to sulfonamides; I25.2 Old myocardial infarction; Z79.01 Long term (current) use of anticoagulants; Z79.899 Other long term (current) drug therapy
CPT/HCPCS: 36415; 36600; 70450; 71045; 76770; 80048; 80053; 80061; 80305; 81001; 82570; 82803; 82948; 83036; 83605; 83735; 83880; 83935; 84100; 84133; 84145; 84300; 84439; 84443; 84484; 85018; 85025; 85610; 85730; 87040; 87077; 87081; 87088; 87186; 87207; 93005; 93306; 97116; 97530; 99291; A6213; A6590; C1758; G0378; J0131; J0696; J1940; J7030; J7040; J7120

== ENCOUNTER 2024-12-27 21:07 | Emergency (ER) | payer MEDICARE, MEDICAID ==
[~2024-12-27] VITALS: Ht 177.8 cm; Wt 89.0 kg
[~2024-12-27 21:07] MED LIST changes: -ACET15SO14 RIGHT EAR; -EMPA10TA PO; -FURO-150 PO; -GABA-530 PO; -LACT1CAP26 PO; -SPIR25TA5 PO; +THYR90TA PO
[2024-12-27 21:16] VITALS: TEMP 97.8
[2024-12-27 21:49] LABS: BASOPHILS # (AUTO) 0.1 X10'3 (0-0.2); BASOPHILS % (AUTO) 0.5 % (0-1); EOSINOPHILS # (AUTO) 0.1 X10'3 (0-0.9); EOSINOPHILS % (AUTO) 1.1 % (0-6); HEMATOCRIT 34.8 % (42.0-52.0); HEMOGLOBIN 11.5 g/dl (14.0-17.9); LYMPHOCYTES # (AUTO) 1.6 X10'3 (1.1-4.8); LYMPHOCYTES % (AUTO) 12.4 % (21-51); MEAN CORPUSCULAR HGB CONC 33.1 g/dL (33.0-36.5); MEAN CORPUSCULAR VOLUME 87.7 FL (78-98); MEAN PLATELET VOLUME 8.6 FL (7.4-10.4); MONOCYTES # (AUTO) 0.9 X10'3 (0-0.9); MONOCYTES % (AUTO) 7.1 % (2-12); NEUTROPHILS # (AUTO) 9.9 X10'3 (1.8-7.7); NEUTROPHILS % (AUTO) 78.9 % (42-75); PLATELET COUNT 485 X10'3 (140-440); RED BLOOD COUNT 3.96 X10'6 (4.70-6.10); RED CELL DISTRIBUTION WIDTH 14.9 % (11.5-14.5); WHITE BLOOD COUNT 12.6 X10'3 (4.5-11.0)
[2024-12-27 22:02] LABS: ALANINE AMINOTRANSFERASE 22 U/L (12-78); ALBUMIN 2.3 G/DL (3.4-5.0); ALBUMIN/GLOBULIN RATIO 0.5 (1.1-1.5); ALKALINE PHOSPHATASE 79 IU/L (46-116); ANION GAP 12 (8-16); ASPARTATE AMINO TRANSFERASE 14 U/L (10-37); BILIRUBIN,TOTAL 0.4 MG/DL (0.1-1.0); BLOOD UREA NITROGEN 36 MG/DL (7-18); BUN/CREATININE RATIO 19.4 (10.0-20.0); CALCIUM 9.4 MG/DL (8.5-10.1); CHLORIDE 104 MMOL/L (99-107); CREATININE 1.86 MG/DL (0.60-1.10); GLUCOSE 129 MG/DL (70-104); POTASSIUM 4.1 MMOL/L (3.5-5.1); SODIUM 141 MMOL/L (135-145); TOTAL PROTEIN 7.1 G/DL (6.4-8.2); eCRCL 34 ML/MIN; eGFR 35 ML/MIN
[2024-12-27 22:10] LABS: PRO BRAIN NATRIURETIC PEPTIDE 9718 PG/ML (0-450)
[2024-12-27] MEDS: ondansetron/PF 4mg/2ml inj IV ONE (22:27)
[2024-12-27] MEDS: nitroGLYCERIN 0.4mg SUBLingual tab SL PRN (22:27)
[2024-12-27] MEDS: morphine 4 MG/ML inj SYRINge IV ONE (22:27)
[2024-12-27] MEDS: mag hydrox/Alum hydrox/simeth 30ml oral suspension PO ONE (22:38)
[2024-12-27] MEDS: LIDOcaine 2% Viscous 15ml cup MM ONE (22:38)
[2024-12-27] MEDS: ketorolac trometh 15mg/ml vial 15 MG/ML ML IV ONE (23:22)
[2024-12-27] MEDS: oxyCODONE/APAP 10/325mg tablet PO ONE (23:22)
[2024-12-28 01:07] VITALS: BP 165/78; PULSE 95; RESP 17; O2SAT 99
== END 2024-12-28 01:09 | disposition home or self-care (01) ==
LOC: ER 21:07
DX: R07.89 Other chest pain (principal); I25.10 Atherosclerotic heart disease of native coronary artery without angina pectoris; I48.91 Unspecified atrial fibrillation; I11.0 Hypertensive heart disease with heart failure; I50.9 Heart failure, unspecified; I25.2 Old myocardial infarction; M19.90 Unspecified osteoarthritis, unspecified site; G89.29 Other chronic pain; Z95.1 Presence of aortocoronary bypass graft; Z88.2 Allergy status to sulfonamides; Z91.010 Allergy to peanuts; Z91.018 Allergy to other foods; Z79.899 Other long term (current) drug therapy; Z98.890 Other specified postprocedural states
CPT/HCPCS: 36415; 71045; 80053; 83880; 84484; 85025; 93005; 96374; 96375; 99285; A4615; J1885; J2270; J2405

== ENCOUNTER 2025-03-13 01:48 | Emergency (ER) | payer MEDICARE, MEDICAID ==
[~2025-03-13] VITALS: Ht 177.8 cm; Wt 85.4 kg
[~2025-03-13 01:48] MED LIST changes: +BACL10TA2 PO; +EMPA10TA PO; -LISI20TA28 PO; +METO-395 PO
--- NOTE | 2025-03-13 02:10 | ELECTROCARDIOGRAPH REPORT ---
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 Zayra Lockett Measurements Intervals [place] Rate: 44 P: 72 MN: 196 QRS: 10 QRSD: 104 T: 160 QT: 481 QTc: 412 Interpretive Statements Sinus bradycardia Probable left atrial enlargement Repol abnrm, severe global ischemia (LM/MVD) Electronically Signed On 03-13-2025 3:23:[address] Zayra Lockett Please click the below link to view image of tracing.
--- NOTE | 2025-03-13 02:14 | Physician Documentation ---
History of Present Illness ~ Chief Complaint: Shortness of Breath Stated Complaint: SHORT OF BREATH Time Seen by MD: 02:09 OK to notify your PCP?: Yes Primary Medical Doctor: [facility] Source: patient, RN/MD, EMS, RN notes reviewed, EMS notes reviewed, old records Mode of Arrival: EMS Exam Limitations: no limitations HPI 79 year old male, with a history of pneumonia and CAD with CABG 5-6 years ago, brought to the ED via EMS complaining of mild shortness of breath and cough for the last three days. He also reports some fatigue yesterday but none today. He has attempted to cough up phlegm, but has had difficulty completely producing it. Finally he notes some very mild soreness across his chest, possibly worse on the left. He is concerned he may need antibiotics. Per old records, patient was admitted from 02/16 to 02/19/25 due to JORDY, UTI, and hyperkalemia. Urine culture was positive for raoultella planticola; during admission he was given 1 g of Rocephin.He was discharged with a new prescription of metoprolol. Medication Reconciliation Allergies: Coded Allergies: melon (Verified Allergy, Severe, HONEY DEW MELON-THROAT CLOSES UP, 12/27/24) THROAT CLOSES UP pepper (genus Capsicum) (Verified Allergy, Intermediate, STOMACH UPSET- CHILI PEPPERS, 12/27/24) Sulfa (Sulfonamide Antibiotics) (Verified Allergy, Unknown, GI UPSET, 12/27/24) alfalfa (Verified Allergy, Unknown, 12/27/24) honey (Unverified Allergy, Unknown, 12/27/24) peanut (Verified Allergy, Unknown, 12/27/24) Scheduled Amlodipine Besylate (Norvasc), 1 TAB PO HS, (Reported) Apixaban (Eliquis), 5 MG PO BID Azithromycin (Zithromax), 1 TAB PO UD Baclofen (Baclofen), 0.5 TAB PO PRN, (Reported) Empagliflozin (Jardiance), 1 TAB PO DAILY, (Reported) Gabapentin (Neurontin), 2 CAP PO DAILY, (Reported) Metoprolol Succinate (Metoprolol Succinate), 12.5 MG PO BID Omeprazole (Omeprazole), 1 CAP PO DAILY, (Reported) Thyroid ([place] Thyroid), 1 TAB PO QAM, (Reported) Scheduled PRN Hydrocodone Bit/Acetaminophen ([place] 10-325 Tablet), 4 TABLET PO Q24H PRN for pain, (Reported) Tramadol HCl (Tramadol HCl), 1 TABLET PO Q4H PRN for pain, (Reported) Past Medical History Past Medical History: Coronary Artery Disease, Hypertension, Myocardial Infarction, Pneumonia, *RENAL/*, Acute Kidney Injury, UTI, Arthritis, Chronic Pain Past Surgical History: angioplasty, coronary bypass surgery, orthopedic surgeries Other Past Surgical History: stents Patient History: (CAD) Coronary arteriosclerosis FATHER, , Age: 89, Cause: CAD (coronary artery disease) ([place]) Myocardial infarction FATHER, , Age: 89, Cause: CAD (coronary artery disease) Smoking Status: Never smoker Alcohol Use: None Drug Use: none Lives In: Home Review of Systems All Other Systems at this time: Reviewed and Negative Physical Exam Vital Signs: RN Vital Signs have been reviewed: Yes, Temperature: 97.7, Source: Oral, Heart Rate: 49, Respiratory Rate: 16, BP: 168/68, Pulse Oximetry: 96, Weight: 85.400 Oxygen Flow Rate: 0 Pulse Oximetry Reflects: adequate oxygenation Physical Exam General: The patient is well developed, well nourished, nontoxic appearing and is in no acute distress. Skin: [place], warm and dry with no rashes. HEENT: Head was normocephalic and atraumatic. Chest: Crackles to the left base, no wheeze. No respiratory distress. No accessory muscle use. No dullness to percussion. Heart: Bradycardic. Normal rhythm. S1, S2. No murmurs. Palpation of the chest wall was normal. No rubs or thrills. Abdomen: Soft, nontender and nondistended. Positive bowel sounds. No guarding or rebound. Extremities: No cyanosis, clubbing or edema. The patient moves all extremities. Pulses were equal and symmetric. Neurologic: Motor and sensation grossly intact. Cranial nerves II-XII grossly intact. A & O x4. Psychologic: Normal mood and affect. No agitation. Progress Results/Orders Results/Orders Orders - SREEDHAR CUMMINGS MD Stat Ekg (03/13/25 02:05) Chest,Single View (03/13/25 02:11) Monitor (03/13/25 02:12) Oxygen (03/13/25 02:12) Saline Lock (03/13/25 02:12) Completed Orders - SREEDHAR CUMMINGS MD Stat Ekg (03/13/25 02:05) Chest,Single View (03/13/25 02:11) Cbc/Diff (03/13/25 02:12) MG (03/13/25 02:12) Pt Inr (03/13/25 02:12) PTT (03/13/25 02:12) PBNP (03/13/25 02:12) BMP (03/13/25 02:12) Hs Troponin I W Calculations (03/13/25 02:12) Furosemide Tablet (Lasix Tablet) (03/13/25 03:15) Azithromycin Tablet (Zithromax Tablet) (03/13/25 03:15) Medications Received in ER Medications (Trade) Dose Ordered Sig/Tomi Route PRN Reason Start Time Stop Time Status Last Admin Dose Admin (Lasix tablet) 20 mg ONCE ONCE PO 03/13/25 03:15 03/13/25 03:17 DC 03/13/25 03:36 20 MG (Zithromax tablet) 500 mg ONCE ONCE PO 03/13/25 03:15 03/13/25 03:17 DC 03/13/25 03:36 500 MG Vital Signs 03/13/25 03/13/25 03/13/25 03/13/25 01:53 02:11 02:20 03:44 Temp 97.7 97.7 97.7 Pulse 49 45 Resp 16 17 12 16 B/P (MAP) 168/68 164/67 (99) 142/84 Pulse Ox 96 97 99 O2 Flow Rate 0 0 Laboratory Tests Test 03/13/25 02:05 White Blood Count 11.8 H Red Blood Count 3.44 L Hemoglobin 9.6 L Hematocrit 29.7 L Mean Corpuscular Volume 86.3 Mean Corpuscular Hemoglobin 28.0 Mean Corpuscular Hemoglobin Concent 32.4 L Red Cell Distribution Width 16.4 H Platelet Count 205 Mean Platelet Volume 9.2 Neutrophils (%) (Auto) 46.0 Lymphocytes (%) (Auto) 38.8 Monocytes (%) (Auto) 13.0 H Eosinophils (%) (Auto) 1.8 Basophils (%) (Auto) 0.4 Neutrophils # (Auto) 5.4 Lymphocytes # (Auto) 4.6 Monocytes # (Auto) 1.5 H Eosinophils # (Auto) 0.2 Basophils # (Auto) 0.0 CBC Comment Prothrombin Time 11.2 INR International Normalized Ratio 1.1 Activated Partial Thromboplast Time 29 Coagulation Comments Sodium Level 138 Potassium Level 4.4 Chloride Level 107 Carbon Dioxide Level 23.9 L Anion Gap 7 L Blood Urea Nitrogen 35 H Creatinine 1.80 H Estimated GFR/1.73 m2 37 BUN/Creatinine Ratio 19.4 Glucose Level 135 H Calcium Level 8.8 Magnesium Level 1.8 Troponin I High Sensitivity 10 Pro-B-Type Natriuretic Peptide 05654 H Albumin 3.1 L Chemistry Comments Re-Evaluation Re-evaluation : Bronchodilator Tx Response: complete relief Re-Evaluation: Improved Progress Patient was seen and examined. Patient was given reassurance. Patient received fluids placed on a monitor. Patient received Lasix and Zithromax there is some effusion noted on x-ray he is also coughing might be developing a secondary infection. Lungs were relatively clear her for no nebulized treatment was given. Patient was prescribed medications encouraged to follow up with his primary care physician return if there was any worsening symptoms fevers shortness of breath or chest pain. Continuous cardiac cath rn interpretation shows sinus bradycardia heart rate 50s, no ectopy, normal for this patient, my interpretation. Pulse oximetry monitor interpretation shows normal oxygenation at 97% room air, normal, my interpretation. 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 Sreedhar Cummings Measurements Intervals [place] Rate: 44 P: 72 [place]: 196 QRS: 10 QRSD: 104 T: 160 QT: 481 QTc: 412 Interpretive Statements Sinus bradycardia Probable left atrial enlargement Repol abnrm, severe global ischemia (LM/MVD) Electronically Signed On 03-13-2025 3:23:[address] Sreedhar Cummings (interpreted by mn) Chest X-Ray : Additional Comments CHEST RADIOGRAPH Indication: CHEST PAIN Technique: Single frontal view of the chest was obtained Comparison: DI CHEST,SINGLE VIEW on DOS: 12/27/24, DI CHEST,SINGLE VIEW on DOS: 12/22/24, DI CHEST,SINGLE VIEW on DOS: 09/06/24 IMPRESSION: Heart appears prominent size with median sternotomy wires. Small bilateral pleural effusions. Mild pulmonary vascular congestion. No focal airspace opacity or pneumothorax. Reviewed by me, Dr. Cummings. Medical Decision Making Additional info obtained from: old records Differential Dx:Considerations: Include: anxiety, asthma, bronchitis, cardiogenic shock, CHF, COPD, dysrhythmia, hypertension, accelerated, hyperventilation, hyponatremia, myocardial infarction, panic attack, pneumonia, pneumonitis, respiratory distress, sinusitis, upper resp. infection, other Departure Time of Disposition: 03:16 Disposition: 01 HOME / SELF CARE / HOMELESS Impression: Primary Impression: Dyspnea Qualified Codes: R06.00 - Dyspnea, unspecified Additional Impressions: Pleural effusion CKD (chronic kidney disease) Qualified Codes: N18.9 - Chronic kidney disease, unspecified CHF (congestive heart failure) Qualified Codes: I50.9 - Heart failure, unspecified Condition: Stable Discharge Instructions: Chronic Kidney Disease, Adult, Guyt-ov-Oquc, Heart Failure, Diagnosis, [id number], Pleural Effusion Additional Instructions: Double your Lasix tomorrow morning. Otherwise take your normal medications as prescribed. Follow up with your regular doctor. Return to the ER for new or worsening symptoms or other concerns. Prescriptions Azithromycin (Zithromax) 250 Mg Tablet 1 TAB PO UD for 5 Days, #6 TAB 2 the first day followed by 1 for days 2-5 Prov: SREEDHAR CUMMINGS MD 03/13/25 Education Educated: Patient Educated regarding: diagnosis, treatment, need for follow up Signature Scribe Signature: Scribed for Sreedhar Cummings MD by Nicole Tate . 03/13/25 02:54 Attestation: The note accurately reflects work and decisions made by me.Sreedhar Cummings MD 03/13/25 06:33 SREEDHAR CUMMINGS MD March 13, 2025 02:14 NICOLE DELAROSA March 13, 2025 02:57
[2025-03-13 02:20] VITALS: PULSE 45
[2025-03-13 02:23] LABS: BASOPHILS % (AUTO) 0.4 % (0-1); EOSINOPHILS # (AUTO) 0.2 X10'3 (0-0.9); EOSINOPHILS % (AUTO) 1.8 % (0-6); HEMATOCRIT 29.7 % (42.0-52.0); HEMOGLOBIN 9.6 g/dl (14.0-17.9); LYMPHOCYTES # (AUTO) 4.6 X10'3 (1.1-4.8); LYMPHOCYTES % (AUTO) 38.8 % (21-51); MEAN CORPUSCULAR HGB CONC 32.4 g/dL (33.0-36.5); MEAN CORPUSCULAR VOLUME 86.3 FL (78-98); MEAN PLATELET VOLUME 9.2 FL (7.4-10.4); MONOCYTES # (AUTO) 1.5 X10'3 (0-0.9); NEUTROPHILS # (AUTO) 5.4 X10'3 (1.8-7.7); PLATELET COUNT 205 X10'3 (140-440); RED BLOOD COUNT 3.44 X10'6 (4.70-6.10); RED CELL DISTRIBUTION WIDTH 16.4 % (11.5-14.5); WHITE BLOOD COUNT 11.8 X10'3 (4.5-11.0)
[2025-03-13 02:31] LABS: APTT 29 SECONDS (22-32); INR 1.1 INR
[2025-03-13 02:40] LABS: PROTHROMBIN TIME 11.2 SECONDS (9.0-12.0)
[2025-03-13 02:46] LABS: ALBUMIN 3.1 G/DL (3.4-5.0); ANION GAP 7 (8-16); BLOOD UREA NITROGEN 35 MG/DL (7-18); BUN/CREATININE RATIO 19.4 (10.0-20.0); CALCIUM 8.8 MG/DL (8.5-10.1); CHLORIDE 107 MMOL/L (99-107); GLUCOSE 135 MG/DL (70-104); MAGNESIUM 1.8 MG/DL (1.5-2.4); POTASSIUM 4.4 MMOL/L (3.5-5.1); PRO BRAIN NATRIURETIC PEPTIDE 11837 PG/ML (0-450); SODIUM 138 MMOL/L (135-145); TOTAL CARBON DIOXIDE 23.9 MMOL/L (24-32); eCRCL 35 ML/MIN; eGFR 37 ML/MIN
--- NOTE | 2025-03-13 03:12 | RADIOLOGY REPORT ---
CHEST RADIOGRAPH Indication: CHEST PAIN Technique: Single frontal view of the chest was obtained Comparison: DI CHEST,SINGLE VIEW on DOS: 12/27/24, DI CHEST,SINGLE VIEW on DOS: 12/22/24, DI CHEST,SING LE VIEW on DOS: 09/06/24 IMPRESSION: Heart appears prominent size with median sternotomy wires. Small bilateral pleural effusions. Mild p ulmonary vascular congestion. No focal airspace opacity or pneumothorax.
[2025-03-13] MEDS ORDERED: AZIT250T PO (03:22)
[2025-03-13] MEDS: azithromycin 250mg tablet PO ONE (03:36)
[2025-03-13] MEDS: furosemide 20MG tablet PO ONE (03:36)
[2025-03-13 03:44] VITALS: BP 142/84; RESP 16; TEMP 97.7; O2SAT 99
== END 2025-03-13 03:39 | disposition home or self-care (01) ==
LOC: ER 01:49
DX: R06.02 Shortness of breath (principal); J90 Pleural effusion, not elsewhere classified; I25.10 Atherosclerotic heart disease of native coronary artery without angina pectoris; I10 Essential (primary) hypertension; I25.2 Old myocardial infarction; G89.29 Other chronic pain; I13.0 Hypertensive heart and chronic kidney disease with heart failure and stage 1 through stage 4 chronic kidney disease, or unspecified chronic kidney disease; I50.9 Heart failure, unspecified; N18.9 Chronic kidney disease, unspecified; M19.90 Unspecified osteoarthritis, unspecified site; Z95.1 Presence of aortocoronary bypass graft; Z88.2 Allergy status to sulfonamides; Z91.010 Allergy to peanuts; Z91.018 Allergy to other foods; Z79.899 Other long term (current) drug therapy
CPT/HCPCS: 36415; 71045; 80048; 83735; 83880; 84484; 85025; 85610; 85730; 93005; 99285

== ENCOUNTER 2025-03-20 07:34 | Emergency (ER) | payer MEDICARE, MEDICAID ==
[~2025-03-20] VITALS: Ht 177.8 cm; Wt 86.8 kg
--- NOTE | 2025-03-20 08:17 | RADIOLOGY REPORT ---
EXAM: DI CHEST,SINGLE VIEW Indication: r/o pna Technique: Single frontal view of the chest was obtained Comparison: DI CHEST,SINGLE VIEW on DOS: 03/13/25, DI CHEST,SINGLE VIEW on DOS: 12/27/24, DI CHEST,SINGL E VIEW on DOS: 12/22/24, DI CHEST,SINGLE VIEW on DOS: 09/06/24, CHEST,SINGLE VIEW on DOS: 08/14/22 FINDINGS: Lines and Tubes: None Lungs: No focal consolidation. Pleura: Trace bilateral pleural effusions. No pneumothorax. Cardiomediastinal contours: Unremarkable. Atherosclerotic vascular calcifications of the thoracic ao rta are noted. Bones: No acute osseous abnormality. IMPRESSION: Trace bilateral pleural effusions.
[2025-03-20 08:28] VITALS: TEMP 98.8
[2025-03-20] MEDS ORDERED: AMOX-117 PO (08:46)
--- NOTE | 2025-03-20 08:47 | Physician Documentation ---
History of Present Illness ~ Chief Complaint: Cough Stated Complaint: DIFF BREATHING Time Seen by MD: 08:03 Primary Medical Doctor: [facility] Source: patient Mode of Arrival: Ambulatory Exam Limitations: no limitations HPI Chief Complaint: Cough Caveat: None Independent Historians: None History of Present Illness: Patient is a 79-year-old man complaining of a cough that began over two weeks ago. Patient was nonspecific as to how long he has had the cough. Patient denies any fevers. Patient complains of occasional shortness of breath. Patient states that he was seen at least a couple of weeks ago for the same thing was placed on Zithromax and it seemed to help for a couple of days but now the cough has returned. He has yellow to brown sputum. Patient believes he has a lung infection and needs a broader spectrum antibiotic. Patient is refusing blood work and only wanting an antibiotic and a sputum culture to determine sensitivity. I informed him that he would likely does not have an infection such as pneumonia. Patient denies any other associated symptoms. Review of systems: All systems were reviewed and are negative except for what is indicated in the history of present illness. Past Medical History: Chronic back pain, spine injury Past Surgical History: Noncontributory Social History: No tobacco use, no alcohol use, no drug use Medications: Reviewed as documented Nursing Notes Allergies: Reviewed as documented in Nursing Notes Medication Reconciliation Allergies: Coded Allergies: melon (Verified Allergy, Severe, HONEY DEW MELON-THROAT CLOSES UP, 12/27/24) THROAT CLOSES UP pepper (genus Capsicum) (Verified Allergy, Intermediate, STOMACH UPSET- CHILI PEPPERS, 12/27/24) Sulfa (Sulfonamide Antibiotics) (Verified Allergy, Unknown, GI UPSET, 12/27/24) alfalfa (Verified Allergy, Unknown, 12/27/24) honey (Unverified Allergy, Unknown, 12/27/24) peanut (Verified Allergy, Unknown, 12/27/24) Scheduled Amlodipine Besylate (Norvasc), 1 TAB PO HS, (Reported) Amox Tr/Potassium Clavulanate (Augmentin 875-125 Tablet), 1 TAB PO Q12H Apixaban (Eliquis), 5 MG PO BID Baclofen (Baclofen), 0.5 TAB PO PRN, (Reported) Empagliflozin (Jardiance), 1 TAB PO DAILY, (Reported) Gabapentin (Neurontin), 2 CAP PO DAILY, (Reported) Metoprolol Succinate (Metoprolol Succinate), 12.5 MG PO BID Omeprazole (Omeprazole), 1 CAP PO DAILY, (Reported) Thyroid ([place] Thyroid), 1 TAB PO QAM, (Reported) Scheduled PRN Hydrocodone Bit/Acetaminophen ([place] 10-325 Tablet), 4 TABLET PO Q24H PRN for pain, (Reported) Tramadol HCl (Tramadol HCl), 1 TABLET PO Q4H PRN for pain, (Reported) albuterol inhaler (Pro-Air Inhaler), 2 PUFFS INH Q4HPRN PRN for wheezing Discontinued Medications Azithromycin (Zithromax), 1 TAB PO UD Discontinued Reason: Auto Discontinued Past Medical History Past Medical History: Coronary Artery Disease, Hypertension, Myocardial Infarction, Pneumonia, *RENAL/*, Acute Kidney Injury, UTI, Arthritis, Chronic Pain Past Surgical History: angioplasty, coronary bypass surgery, orthopedic surgeries Other Past Surgical History: stents Patient History: (CAD) Coronary arteriosclerosis FATHER, , Age: 89, Cause: CAD (coronary artery disease) ([place]) Myocardial infarction FATHER, , Age: 89, Cause: CAD (coronary artery disease) Alcohol Use: None Drug Use: none Lives In: Home Review of Systems All Other Systems at this time: Reviewed and Negative ROS Patient denies any other acute symptoms other than above. All other systems are negative Physical Exam Vital Signs: RN Vital Signs have been reviewed: Yes, Temperature: 98.8, Source: Oral, Heart Rate: 48, Respiratory Rate: 16, BP: 142/61, Pulse Oximetry: 94, Weight: 86.800 Oxygen Flow Rate: 0 Pulse Oximetry Reflects: adequate oxygenation Physical Exam General Appearance: No distress HEENT: Normal OP, moist oral mucosa, PERRL, EOMI Neck: supple, normal ROM, trachea midline Pulmonary: No respiratory distress, CTA, BS equal Cardiac: RRR, no murmur, rub or gallop, 1+ pitting lower extremity edema Extremities: normal ROM, no swelling, non-tender Skin: intact, dry, warm, no rashes Neuro: AAOx3, speech is clear, no focal motor weakness Psych: normal affect, good eye contact, no apparent hallucination, normal speech Progress Results/Orders Results/Orders Orders - ANTHONY GARCIA MD Chest,Single View (03/20/25 07:50) Cult Sputum + Gram Stain (03/20/25 08:40) * Rt Notification Q1H (03/20/25 09:28) Completed Orders - ANTHONY GARCIA MD Chest,Single View (03/20/25 07:50) Albuterol 2.5mg/3ml Nebule (Proventil 2. (03/20/25 09:30) Vital Signs 03/20/25 03/20/25 03/20/25 07:45 08:22 08:28 Temp 98.8 98.8 Pulse 49 48 Resp 16 16 16 B/P (MAP) 152/56 142/61 (88) Pulse Ox 97 94 O2 Flow Rate 0 0 Medical Decision Making Findings Differential diagnosis includes but is not limited to: Congestive heart failure, COPD, acute bronchitis, viral syndrome, pneumonia Chest x-ray, single view, indication: Cough Independent interpretation: Lungs are clear, normal mediastinum, normal cardiac silhouette, small bilateral pleural effusions Emergency department course/medical decision-making: Patient was a 79-year-old man that it is convinced he has an infection which may or may not be the case. Patient's chest x-ray is clear of pneumonia. Patient was demanding antibiotics and a sputum culture. This was completed. Patient was instructed to follow up with his primary care doctor and consider referral to a manager dialysis for her small bilateral pleural effusions. Patient was stable for discharge. Patient was refusing blood work. Departure Time of Disposition: 08:44 Disposition: 01 HOME / SELF CARE / HOMELESS Impression: Primary Impression: Cough Qualified Codes: R05.3 - Chronic cough Additional Impression: Pleural effusion Condition: Stable Discharge Instructions: Cough, Adult, [id number], Pleural Effusion Additional Instructions: YOU MUST FOLLOW UP WITH YOUR PRIMARY CARE DOCTOR. YOU HAVE SMALL BILATERAL PLEURAL EFFUSIONS. RECOMMEND AFTER FOLLOW UP WITH YOUR PRIMARY CARE DOCTOR CONSIDER REFERRAL TO A WIRELESS SALES REPRESENTATIVE. ANTIBIOTICS ARE NOT GOING TO HELP. Prescriptions albuterol inhaler (Pro-Air Inhaler) 8.5 Gm Inhaler 2 PUFFS INH Q4HPRN PRN for wheezing for 30 Days, #18 GM Prov: ANTHONY GARCIA MD 03/20/25 Amox Tr/Potassium Clavulanate (Augmentin 875-125 Tablet) 1 Each Tablet 1 TAB PO Q12H for 10 Days, #20 TAB Prov: ANTHONY GARCIA MD 03/20/25 Education Educated: Patient Educated regarding: diagnosis, treatment, need for follow up Signature Scribe Signature: NO SCRIBE Attestation: NO SCRIBE ANTHONY GARCIA MD March 20, 2025 08:46
[2025-03-20] MEDS ORDERED: albuterol 2.5 MG/3 ML nebule NEB ONE (09:30)
[2025-03-20] MEDS ORDERED: ALBU8HFA INH (09:30)
[2025-03-20 11:30] VITALS: BP 152/58; PULSE 48; RESP 16; O2SAT 99
== END 2025-03-20 10:00 | disposition home or self-care (01) ==
LOC: ER 07:35
DX: J90 Pleural effusion, not elsewhere classified (principal); I11.9 Hypertensive heart disease without heart failure; I25.10 Atherosclerotic heart disease of native coronary artery without angina pectoris; M19.90 Unspecified osteoarthritis, unspecified site; Z88.2 Allergy status to sulfonamides; Z88.8 Allergy status to other drugs, medicaments and biological substances; Z95.1 Presence of aortocoronary bypass graft
CPT/HCPCS: 71045; 87070; 99284

== ENCOUNTER 2025-05-15 07:48 | Emergency (ER) | payer MEDICARE, MEDICAID ==
[~2025-05-15] VITALS: Ht 177.8 cm; Wt 81.8 kg
[~2025-05-15 07:48] MED LIST changes: +CIPR-202 PO; +TAMS-55 PO
--- NOTE | 2025-05-15 07:57 | Physician Documentation ---
History of Present Illness ~ General Stated Complaint: HYPERTENSION Time Seen by MD: 07:53 Primary Medical Doctor: [facility] Source: patient, EMS, EMS notes reviewed Mode of Arrival: EMS History of Present Illness Initial Comments Chief Complaint: Heart pounding Caveat: None Independent Historians: Paramedics History of Present Illness: Patient is a 79-year-old man with history of hypertension who woke up this morning complaining of feeling his heart pounding. Patient checked his blood pressure with his wrist monitor and he states that it read 300/200. Patient then decided to take three sublingual nitro. Patient did not get any relief and he decided to take another three sublingual nitro. [facility] arrived patient now complains of a mild headache in his blood pressure is 187 systolic. Patient denies any chest pain. Patient denies any shortness a breath. Review of medical records: Patient has been seen in our emergency department many times. Patient was seen here on May 12 and diagnosed with a urinary tract infection admitted to the hospital. Patient was discharged from the hospital yesterday. Review of systems: All systems were reviewed and are negative except for what is indicated in the history of present illness. Past Medical History: CAD, HTN, OR, pneumonia, chronic kidney disease, arthritis, chronic pain Past Surgical History: Angioplasty, CABG, orthopedic surgeries Social History: No tobacco use, no alcohol use, no drug use, Medications: Reviewed as documented Nursing Notes Allergies: Reviewed as documented in Nursing Notes Medication Reconciliation Allergies: Coded Allergies: melon (Verified Allergy, Severe, HONEY DEW MELON-THROAT CLOSES UP, 12/27/24) THROAT CLOSES UP pepper (genus Capsicum) (Verified Allergy, Intermediate, STOMACH UPSET- CHILI PEPPERS, 12/27/24) Sulfa (Sulfonamide Antibiotics) (Verified Allergy, Unknown, GI UPSET, 12/27/24) alfalfa (Verified Allergy, Unknown, 12/27/24) honey (Unverified Allergy, Unknown, 12/27/24) peanut (Verified Allergy, Unknown, 12/27/24) Scheduled Amlodipine Besylate (Norvasc), 1 TAB PO HS, (Reported) Apixaban (Eliquis), 1 TAB PO BID, (Reported) Baclofen (Baclofen), 0.5 TAB PO PRN, (Reported) Ciprofloxacin HCl (Ciprofloxacin HCl), 1 TAB PO BID Empagliflozin (Jardiance), 1 TAB PO DAILY, (Reported) Gabapentin (Neurontin), 2 CAP PO DAILY, (Reported) Metoprolol Succinate (Metoprolol Succinate), 0.5 TAB PO BID, (Reported) Omeprazole (Omeprazole), 1 CAP PO DAILY, (Reported) Tamsulosin Hcl* (Flomax*), 1 CAP PO DAILY Thyroid ([place] Thyroid), 1 TAB PO QAM, (Reported) Scheduled PRN Hydrocodone Bit/Acetaminophen ([place] 10-325 Tablet), 4 TABLET PO Q24H PRN for pain, (Reported) Nitroglycerin SL* (Nitrostat SL*), 1 TAB SL Q5MIN PRN for Chest pain Q5min PRNx3-call MD ONDANSETRON ODT 4mg tablet (Ondansetron Odt), 1 TAB PO Q6H PRN PRN for nausea/vomiting Tramadol HCl (Tramadol HCl), 1 TABLET PO Q4H PRN for pain, (Reported) Past Medical History Past Medical History: Coronary Artery Disease, Hypertension, Myocardial Infarction, Pneumonia, *RENAL/*, Acute Kidney Injury, UTI, Arthritis, Chronic Pain Past Surgical History: angioplasty, coronary bypass surgery, orthopedic surgeries Other Past Surgical History: stents Patient History: (CAD) Coronary arteriosclerosis FATHER, , Age: 89, Cause: CAD (coronary artery disease) ([place]) Myocardial infarction FATHER, , Age: 89, Cause: CAD (coronary artery disease) Alcohol Use: None Drug Use: none Lives In: Home Review of Systems All Other Systems at this time: Reviewed and Negative ROS Patient denies any other acute symptoms other than above. All other systems are negative Physical Exam Physical Exam Vital Signs: RN Vital Signs have been reviewed: Yes Pulse Oximetry Reflects: adequate oxygenation Physical Exam General Appearance: No distress, chronically ill. HEENT: Normal OP, moist oral mucosa, PERRL, EOMI Neck: supple, normal ROM, trachea midline Pulmonary: No respiratory distress, CTA, BS equal Cardiac: RRR, no murmur, rub or gallop, GI: nondistended, soft, nontender, normal bowel sounds, no guarding, no rebound Extremities: normal ROM, no swelling, non-tender Skin: intact, dry, warm, no rashes Neuro: AAOx3, speech is clear, no focal motor weakness Psych: normal affect, good eye contact, no apparent hallucination, normal speech Progress Results/Orders Results/Orders Orders - ANTHONY GARCIA MD Chest,Single View (05/15/25 07:53) Saline Lock (05/15/25 07:53) Monitor (05/15/25 07:53) Electrocardiogram (05/15/25 10:17) Completed Orders - ANTHONY GARCIA MD Cbc/Diff (05/15/25 07:53) MG (05/15/25 07:53) Electrocardiogram (05/15/25 07:53) PBNP (05/15/25 07:53) Chest,Single View (05/15/25 07:53) Hs Troponin I W Calculations (05/15/25 07:53) Hs Troponin I W Calculations (05/15/25 09:53) Hs Troponin I W Calculations (05/15/25 10:53) CMP (05/15/25 07:53) Vital Signs 05/15/25 05/15/25 05/15/25 07:55 08:03 12:32 Temp 98.0 98.1 Pulse 76 72 Resp 16 17 16 B/P (MAP) 172/78 169/79 (109) Pulse Ox 98 97 O2 Flow Rate 0 Laboratory Tests Test 05/15/25 08:03 05/15/25 10:04 05/15/25 11:07 White Blood Count 8.6 Red Blood Count 4.05 L Hemoglobin 11.1 L Hematocrit 33.9 L Mean Corpuscular Volume 83.7 Mean Corpuscular Hemoglobin 27.4 Mean Corpuscular Hemoglobin Concent 32.7 L Red Cell Distribution Width 14.6 H Platelet Count 318 Mean Platelet Volume 8.1 Neutrophils (%) (Auto) 48.7 Lymphocytes (%) (Auto) 39.9 Monocytes (%) (Auto) 9.9 Eosinophils (%) (Auto) 1.0 Basophils (%) (Auto) 0.5 Neutrophils # (Auto) 4.2 Lymphocytes # (Auto) 3.4 Monocytes # (Auto) 0.9 Eosinophils # (Auto) 0.1 Basophils # (Auto) 0.0 CBC Comment Sodium Level 140 Potassium Level 3.7 Chloride Level 106 Carbon Dioxide Level 22.5 L Anion Gap 12 Blood Urea Nitrogen 22 H Creatinine 1.96 H Estimated GFR/1.73 m2 33 BUN/Creatinine Ratio 11.2 Glucose Level 99 Calcium Level 9.5 Magnesium Level 1.4 L Total Bilirubin 0.4 Aspartate Amino Transf (AST/SGOT) 14 Alanine Aminotransferase (ALT/SGPT) 9 L Alkaline Phosphatase 76 Troponin I High Sensitivity 15 17 18 Pro-B-Type Natriuretic Peptide 9391 H Total Protein 7.4 Albumin 3.0 L Globulin 4.4 H Albumin/Globulin Ratio 0.7 L Chemistry Comments Troponin I High Sens Percent Delta 13 5 Troponin I Hi Sens Absolute Change 2 1 Medical Decision Making Additional info obtained from: old records Findings Differential diagnosis includes but is not limited to: Hypertensive emergency, hypertensive urgency, acute coronary syndrome, congestive heart failure EKG independent interpretation: Performed at 8:03 a.m.. Normal sinus rhythm, heart rate 72, normal axis, Q-waves in V1 through V3, flat ST depressions in inferior lateral leads. I suspect this is chronic. No old EKGs to compare Repeat EKG independent interpretation: Performed at 10:41 a.m.. Normal sinus rhythm, heart rate 78, normal axis, Q-wave in V1 and V2. EKGs compared to March 13, 2025 and May 12, 2025. ST segment depression seen today are not new. These are chronic. Chest x-ray, single view, indication: Hypertension Independent interpretation: Lungs are clear, normal mediastinum, cardiomegaly. No acute cardiopulmonary process. No pleural effusions. Laboratory data independent interpretation: CBC: UNREMARKABLE. MILD ANEMIA HEMOGLOBIN 11.1 WHICH IS CHRONIC CMP: Chronic kidney disease, BUN 22, creatinine 1.96 which is at his baseline. Chemistries are otherwise unremarkable. First troponin: 15 2nd troponin: 17 Third troponin: 18 Pro BNP: 9391 up from 6014 on May 12 Emergency department course/medical decision-making: Patient presents with feeling and hearing his heart pound. Patient denied any headache. That was a misunderstanding. Patient is neurologically intact. Patient is feeling better. Patient's blood pressure has improved significantly. I am not convinced that his blood pressure was 300/200. Patient is currently asymptomatic. Patient's enzymes are negative and patient does not have any new ischemic changes on his EKG. Patient is going to be discharged home. No evidence of a medical or surgical emergency is present. Test results and treatment plan reviewed with the patient as above. 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 Departure Time of Disposition: 10:00 Disposition: 01 HOME / SELF CARE / HOMELESS Impression: Primary Impression: Hypertension Qualified Codes: I10 - Essential (primary) hypertension Condition: Stable Discharge Instructions: Hypertension, Adult, [id number] Additional Instructions: FOLLOW UP WITH YOUR PRIMARY CARE DOCTOR TO BETTER MANAGE YOUR HIGH BLOOD PRESSURE Referrals: NO PRIMARY CARE PROVIDER (PCP) Prescriptions Nitroglycerin SL* (Nitrostat SL*) 0.4 Mg Tablet 1 TAB SL Q5MIN PRN for Chest pain Q5min PRNx3-call MD, #25 TAB Prov: ANTHONY GARCIA MD 05/15/25 ONDANSETRON ODT 4mg tablet (ONDANSETRON ODT) 4 Mg Tab.rapdis 1 TAB PO Q6H PRN PRN for nausea/vomiting, #20 TAB 0 Refills Prov: ANTHONY GARCIA MD 05/15/25 Education Educated: Patient Educated regarding: diagnosis, treatment, need for follow up Signature Scribe Signature: No scribe Attestation: No scribe ANTHONY GARCIA MD May 15, 2025 07:57
[2025-05-15 08:13] LABS: MEAN PLATELET VOLUME 8.1 FL (7.4-10.4); RED CELL DISTRIBUTION WIDTH 14.6 % (11.5-14.5)
[2025-05-15 08:26] LABS: CREATININE 1.96 MG/DL (0.60-1.10); TOTAL CARBON DIOXIDE 22.5 MMOL/L (24-32); eCRCL 32 ML/MIN; eGFR 33 ML/MIN
--- NOTE | 2025-05-15 08:28 | RADIOLOGY REPORT ---
EXAM: DI CHEST,SINGLE VIEW HISTORY: CP COMPARISON: DI CHEST,SINGLE VIEW on DOS: 03/20/25, DI CHEST,SINGLE VIEW on DOS: 03/13/25, DI CHEST,SINGLE VIEW on DOS: 12/27/24, DI CHEST,SINGLE VIEW on DOS: 12/22/24, DI CHEST,SINGLE VIEW on DOS: 09/06/24 TECHNIQUE: Portable upright AP view of the chest was performed. FINDINGS: No pneumothorax, consolidative infiltrates, or pulmonary edema. Cardiomegaly and postoperative change s of the heart re-identified. IMPRESSION: 1. No acute intrathoracic process. 2. Cardiomegaly and postoperative changes of the heart.
[2025-05-15 08:33] LABS: PRO BRAIN NATRIURETIC PEPTIDE 9391 PG/ML (0-450)
--- NOTE | 2025-05-15 10:42 | ELECTROCARDIOGRAPH REPORT ---
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
[2025-05-15] MEDS ORDERED: NITR0.4T51 SL (11:59)
[2025-05-15] MEDS ORDERED: ONDA-243 PO (11:59)
[2025-05-15 12:32] VITALS: BP 169/79; PULSE 72; RESP 16; TEMP 98.1; O2SAT 97
--- NOTE | 2025-05-15 14:02 | ELECTROCARDIOGRAPH REPORT ---
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
== END 2025-05-15 12:36 | disposition home or self-care (01) ==
LOC: ER 07:49
DX: I12.9 Hypertensive chronic kidney disease with stage 1 through stage 4 chronic kidney disease, or unspecified chronic kidney disease (principal); N18.9 Chronic kidney disease, unspecified; R06.02 Shortness of breath; I25.10 Atherosclerotic heart disease of native coronary artery without angina pectoris; I25.2 Old myocardial infarction; M19.90 Unspecified osteoarthritis, unspecified site; Z88.8 Allergy status to other drugs, medicaments and biological substances; Z95.1 Presence of aortocoronary bypass graft
CPT/HCPCS: 36415; 71045; 80053; 83735; 83880; 84484; 85025; 93005; 99285

== ENCOUNTER 2025-07-29 21:44 | Emergency (ER) | payer MEDICARE, MEDICAID ==
[~2025-07-29] VITALS: Ht 177.8 cm; Wt 84.5 kg
[~2025-07-29 21:44] MED LIST changes: -CIPR-202 PO; +ONDA-243 PO; -TAMS-55 PO
[2025-07-29 22:07] VITALS: TEMP 97.9
--- NOTE | 2025-07-29 22:24 | ELECTROCARDIOGRAPH REPORT ---
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
[2025-07-29 22:33] LABS: MEAN PLATELET VOLUME 8.9 FL (7.4-10.4); RED CELL DISTRIBUTION WIDTH 17.5 % (11.5-14.5)
--- NOTE | 2025-07-29 22:49 | RADIOLOGY REPORT ---
CHEST RADIOGRAPH Indication: CP Technique: 1 view Comparison: DI CHEST,SINGLE VIEW on DOS: 05/15/25, DI CHEST,SINGLE VIEW on DOS: 03/20/25, DI CHEST,SINGLE VIEW on DOS: 03/13/25, DI CHEST,SINGLE VIEW on DOS: 12/27/24, DI CHEST,SINGLE VIEW on DOS: 12/22/24 FINDINGS: Lines and Tubes: None Lungs/Pleura: No focal consolidation, evident pleural effusion or pneumothorax. Similar perihilar interstitial opacities. Cardiomediastinum: Unchanged, upper normal heart size with prior CABG. Other: No acute osseous abnormality. Median sternotomy wires. IMPRESSION: No acute cardiopulmonary abnormality or change from the prior exam. Post CABG chest with mild heart failure pattern.
[2025-07-29 22:57] LABS: CREATININE 2.16 MG/DL (0.60-1.10); PRO BRAIN NATRIURETIC PEPTIDE 13773 PG/ML (0-450); TOTAL CARBON DIOXIDE 23.4 MMOL/L (24-32); eCRCL 29 ML/MIN; eGFR 30 ML/MIN
--- NOTE | 2025-07-29 23:49 | Physician Documentation ---
History of Present Illness ~ Chief Complaint: Edema Stated Complaint: LEG PAIN Time Seen by MD: 23:45 Primary Medical Doctor: [facility] Mode of Arrival: EMS, Stretcher [facility] Patient presents to the emergency room for evaluation of bilateral lower extremity edema over the past two days. Patient does have history of this but this is worse than usual. He does endorse increased salt intake over the past couple of days and did take some Lasix last night in his noticed some improve ment. No chest pain or shortness of breath. Medication Reconciliation Allergies: Coded Allergies: melon (Verified Allergy, Severe, HONEY DEW MELON-THROAT CLOSES UP, 12/27/24) THROAT CLOSES UP pepper (genus Capsicum) (Verified Allergy, Intermediate, STOMACH UPSET- CHILI PEPPERS, 12/27/24) Sulfa (Sulfonamide Antibiotics) (Verified Allergy, Unknown, GI UPSET, 12/27/24) alfalfa (Verified Allergy, Unknown, 12/27/24) honey (Unverified Allergy, Unknown, 12/27/24) peanut (Verified Allergy, Unknown, 12/27/24) Scheduled Amlodipine Besylate (Norvasc), 1 TAB PO HS, (Reported) Apixaban (Eliquis), 1 TAB PO BID, (Reported) Baclofen (Baclofen), 0.5 TAB PO PRN, (Reported) Empagliflozin (Jardiance), 1 TAB PO DAILY, (Reported) Gabapentin (Neurontin), 2 CAP PO DAILY, (Reported) Metoprolol Succinate (Metoprolol Succinate), 0.5 TAB PO BID, (Reported) Omeprazole (Omeprazole), 1 CAP PO DAILY, (Reported) Thyroid ([place] Thyroid), 1 TAB PO QAM, (Reported) Scheduled PRN Hydrocodone Bit/Acetaminophen ([place] 10-325 Tablet), 4 TABLET PO Q24H PRN for pain, (Reported) ONDANSETRON ODT 4mg tablet (Ondansetron Odt), 1 TAB PO Q6H PRN PRN for nausea/vomiting Tramadol HCl (Tramadol HCl), 1 TABLET PO Q4H PRN for pain, (Reported) Past Medical History Past Medical History: Atrial Fibrillation, Coronary Artery Disease, H ypertension, Myocardial Infarction, Pneumonia, *RENAL/*, Acute Kidney Injury, UTI, Arthritis, Chronic Pain Past Surgical History: angioplasty, coronary bypass surgery, orthopedic surgeries Other Past Surgical History: stents Patient History: (CAD) Coronary arteriosclerosis FATHER, , Age: 89, Cause: CAD (coronary artery disease) ([place]) Myocardial infarction FATHER, , Age: 89, Cause: CAD (coronary artery disease) Alcohol Use: None Drug Use: none Lives In: Home Review of Systems ROS All review of systems negative except as per HPI Physical Exam Vital Signs: Temperature: 97.9, Source: Oral, Heart Rate: 40, Respiratory Rate: 16, BP: 137/68, Pulse Oximetry: 98, Weight: 84.550 Oxygen Flow Rate: 0 General Appearance General: Patient is awake, alert, oriented x4 in no acute distress Head: Normocephalic and atraumatic. Eyes: Conjunctival normal. EOMI. PERRL. ENT: Mucous membranes moist. Neck: Supple, trachea is midline. Chest: Clear to auscultation bilaterally without rales, rhonchi, or wheezes. There is no accessory muscle use or retractions. Cardiac: RRR without murmurs, gallops, or rubs. Extremities: Normal strength. Normal range of motion. 1+ bilateral dependent edema that has pitting Progress Results/Orders Results/Orders Orders - TOBY KLEIN MD Chest,Single View (07/29/25 22:35) Hs Troponin I W Calculations (07/30/25 00:15) Hs Troponin I W Calculations (07/30/25 01:15) Completed Orders - TOBY KLEIN MD Cbc/Diff (07/29/25 22:15) MG (07/29/25 22:15) Electrocardiogram (07/29/25 22:15) PBNP (07/29/25 22:15) Chest,Single View (07/29/25 22:35) BMP (07/29/25 22:15) Hs Troponin I W Calculations (07/29/25 22:15) Vital Signs 07/29/25 07/29/25 07/29/25 22:07 23:13 23:14 Temp 97.9 Pulse 49 40 Resp 16 16 16 B/P (MAP) 144/59 137/68 (91) Pulse Ox 99 98 O2 Flow Rate 0 Laboratory Tests Test 07/29/25 22:25 White Blood Count 8.5 Red Blood Count 3.95 L Hemoglobin 11.0 L Hematocrit 33.3 L Mean Corpuscular Volume 84.4 Mean Corpuscular Hemoglobin 27.8 Mean Corpuscular Hemoglobin Concent 33.0 Red Cell Distribution Width 17.5 H Platelet Count 186 Mean Platelet Volume 8.9 Neutrophils (%) (Auto) 56.8 Lymphocytes (%) (Auto) 30.1 Monocytes (%) (Auto) 10.1 Eosinophils (%) (Auto) 2.2 Basophils (%) (Auto) 0.8 Neutrophils # (Auto) 4.8 Lymphocytes # (Auto) 2.6 Monocytes # (Auto) 0.9 Eosinophils # (Auto) 0.2 Basophils # (Auto) 0.1 CBC Comment Sodium Level 139 Potassium Level 3.8 Chloride Level 104 Carbon Dioxide Level 23.4 L Anion Gap 12 Blood Urea Nitrogen 35 H Creatinine 2.16 H Estimated GFR/1.73 m2 30 BUN/Creatinine Ratio 16.2 Glucose Level 97 Calcium Level 9.1 Magnesium Level 1.9 Troponin I High Sensitivity 21 Pro-B-Type Natriuretic Peptide 01779 H Albumin 3.3 L Chemistry Comments EKG/XRAY/CT/US/VASC/MRI EKG : Additional Comment EKG interpreted by myself shows time of 01/01/2022, rate 48, atrial fibrillation, normal axis, nonspecific ST-T changes Medical Decision Making Findings Patient presents to the emergency room with bilateral lower extremity edema. Differentials include but are not limited to acute kidney injury, CHF exacerbation, venous insufficiency, DVT therefore emergent labs ordered. The patient does have an elevated BNP however does have history of chronic renal failure. Chest x-ray shows no congestion and patient is saturating very well on room air and he had not feel he is suffering from heart failure. Last echo within the past year and was reassuring. Patient does exhibit significant bradycardia for which the patient is aware of and states this is usual for him and denies any presyncopal symptoms. He does state that has worked with his supply analyst and there was a small discussion about pacemaker placement however he said he declined. He states that it is usual for him to go down into the 30s. Patient is on blood thinners and given bilateral symptoms I do not feel patient is suffering from DVT. No evidence of infection. Symptoms likely from venous insufficiency. Salt restriction along with mild diuresis foot elevation and compression stockings discussed. Departure Disposition: HOME / SELF CARE / HOMELESS Impression: Primary Impression: Edema of lower extremity Condition: Stable Discharge Instructions: Edema Additional Instructions: Keeping legs elevated, salt restriction, compression stockings in gentle diuresis with a occasional Lasix that has reasonable. Follow up with your doctor Referrals: NO PRIMARY CARE PROVIDER (PCP) Signature Scribe Signature: No scribe Attestation: The note accurately reflects work and decisions made by me.Toby Klein MD 07/30/25 00:18 TOBY KLEIN MD Jul 29, 2025 23:49
[2025-07-30 00:30] VITALS: BP 146/66; PULSE 51; RESP 16; O2SAT 96
== END 2025-07-30 00:32 | disposition home or self-care (01) ==
LOC: ER 21:45
DX: R60.0 Localized edema (principal); R06.02 Shortness of breath; I10 Essential (primary) hypertension; I25.10 Atherosclerotic heart disease of native coronary artery without angina pectoris; I25.2 Old myocardial infarction; I48.91 Unspecified atrial fibrillation; M19.90 Unspecified osteoarthritis, unspecified site; Z88.2 Allergy status to sulfonamides; Z88.8 Allergy status to other drugs, medicaments and biological substances; Z91.010 Allergy to peanuts; Z95.1 Presence of aortocoronary bypass graft
CPT/HCPCS: 36415; 71045; 80048; 83735; 83880; 84484; 85025; 93005; 99285

== ENCOUNTER 2025-08-17 12:57 | Outpatient (CLI) | payer MEDICARE, MEDICAID ==
--- NOTE | 2025-08-17 18:52 | CARDIOLOGY REPORT ---
APPROVED REPORT EXAM: Comprehensive 2D, Doppler, and color-flow Echocardiogram. Patient Location: OUTPATIENT Blood Pressure: 175/70 mmHg Heart Rate: 50's bpm Rhythm: SINUS BRADYCARDIA Indications CONGESTIVE HEART FAILURE Principal Data Architect: Armando HERNANDEZ MD Previous echo: 12-23-24 [facility] EF 55-60%, mLVH, RVSP 43 mmHg, Shakira, mMR, mTR 2D Dimensions RVDd 4.1 cm IVSd 1.0 (0.7-1.1cm) LVDd 5.2 cm PWd 1.0 (0.7-1.1cm) IVSs 1.3 (0.8-1.2cm) LVDs 3.3 (2.5-4.0cm) PWs 1.3 (0.8-1.2cm) LVOT Diameter 1.95 (1.8-2.4cm) LVEF(%) 67.1 (>50%) FS (%) 37.5 % SV 88.1 ml M-Mode Dimensions Aortic Root 2.38 (2.2-3.7cm) Aortic Valve AoV Peak Dav. 174.5 cm/s AoV VTI 41.2 cm AO Peak GR. 12.2 mmHg AO Mean GR. 6 mmHg LVOT VTI 30.97 cm LVOT Peak Dav. 136.9 cm/s LINA (VMAX) 2.33 cm2 LINA (VTI) 2.23 cm2 AI P 1/2 Time 422 ms Mitral Valve MV E Velocity 169.6 cm/s MV DECEL TIME 270 ms MV A Velocity 62.4 cm/s MV PHT 73 ms E/A Ratio 2.7 MVA (PHT) 3.01 cm2 TDI E/Medial E' 34.7 Tricuspid Valve TR P. Velocity 333 cm/s RAP ESTIMATE 10 mmHg TR Peak Gr. 45 mmHg RVSP 55 mmHg LEFT VENTRICLE Normal LV size and wall thickness. Overall systolic function is normal. LVEF is 55-60%. RIGHT VENTRICLE RV is mildly dilated with normal function. Elevated right heart pressures with an RVSP of 55 mmHg. ATRIA Left atrium is at least moderately dilated. AORTIC VALVE Trileaflet AV appears mildly sclerotic without stenosis. Moderate insufficiency. MITRAL VALVE Mild MV annular calcification without stenosis. Mild regurgitation. TRICUSPID VALVE TV appears structurally normal with mild regurgitation. PULMONIC VALVE Normal PV without stenosis, physiologic insufficiency. GREAT VESSELS The aortic root is normal in size. PERICARDIUM Normal pericardium. No effusion. Other Information Study Quality: Adequate Conclusion Normal LV size and wall thickness. Overall systolic function is normal. LVEF is 55-60%. RV is mildly dilated with normal function. Elevated right heart pressures with an RVSP of 55 mmHg. Left atrium is at least moderately dilated. Trileaflet AV appears mildly sclerotic without stenosis. Moderate insufficiency. Mild MV annular calcification without stenosis. Mild regurgitation. TV appears structurally normal with mild regurgitation. Normal pericardium. No effusion.
== END 2025-08-17 23:59 | disposition home or self-care (01) ==
LOC: CARD DIAG 12:57
PROVIDERS: ATTEND Internal Medicine Cardiovascular Disease
DX: I08.8 Other rheumatic multiple valve diseases (principal); I50.9 Heart failure, unspecified; R00.1 Bradycardia, unspecified
CPT/HCPCS: 93306